=== PATIENT | male | born 1995 | race Two or more races ===

== ENCOUNTER 2018-10-17 17:05 | Emergency (ER) | payer BC, OTHER ==
--- NOTE | 2018-10-17 17:30 | ED ---
Back Pain HPI - General Chief Complaint: Back Pain/Injury Stated Complaint: BACK PAIN Time Seen by Provider: 10/17/18 17:29 Source: patient, RN notes reviewed, old records reviewed Limitations: no limitations - History of Present Illness Initial Comments: This is a 20-year-old male the ER for evaluation chest pain back pain. Patient having persistent pain in his back which began after his tried to crack his back 2 days ago. Patient with occasional shortness of breath but unable to move without difficulty and discomfort. Patient has not tried Motrin, for pain , he occasionally smokes is not been slowly secondary to pursue shortness of breath and not feeling well. He denies any fevers or any other traumatic injury MD Complaint: back pain -: days(s) (2) Similar Symptoms Previously: Yes Place: home Radiation: none Severity: moderate Severity scale (1-10): 4 Quality: aching Consistency: constant Improves With: none - Related Data Home Medications Medication Instructions Recorded Confirmed No Known Home Medications 10/17/18 10/17/18 Allergies Allergy/AdvReac Type Severity Reaction Status Date / Time No Known Allergies Allergy Verified 10/17/18 17:31 Review of Systems ROS Statement: Those systems with pertinent positive or pertinent negative responses have been documented in the HPI. ROS Other: All systems not noted in ROS Statement are negative. Past Medical History Past Medical History: No Reported History Additional Past Medical History / Comment(s): chest pain in the past History of Any Multi-Drug Resistant Organisms: None Reported Past Surgical History: No Surgical Hx Reported Past Psychological History: No Psychological Hx Reported Smoking Status: Current every day smoker Past Alcohol Use History: None Reported Past Drug Use History: Marijuana General Exam Limitations: no limitations General appearance: alert, in no apparent distress Head exam: Present: atraumatic, normocephalic, normal inspection Eye exam: Present: normal appearance, PERRL, EOMI. Absent: scleral icterus, conjunctival injection, periorbital swelling ENT exam: Present: normal exam, mucous membranes moist Neck exam: Present: normal inspection. Absent: tenderness, meningismus, lymphadenopathy Respiratory exam: Present: normal lung sounds bilaterally. Absent: respiratory distress, wheezes, rales, rhonchi, stridor Cardiovascular Exam: Present: regular rate, normal rhythm, normal heart sounds. Absent: systolic murmur, diastolic murmur, rubs, gallop, clicks GI/Abdominal exam: Present: soft, normal bowel sounds. Absent: distended, tenderness, guarding, rebound, rigid Extremities exam: Present: normal inspection, full ROM, normal capillary refill. Absent: tenderness, pedal edema, joint swelling, calf tenderness Back exam: Present: normal inspection Neurological exam: Present: alert, oriented X3, CN II-XII intact Psychiatric exam: Present: normal affect, normal mood Skin exam: Present: warm, dry, intact, normal color. Absent: rash Course Vital Signs 10/17/18 10/17/18 17:13 19:37 Temperature 98.0 F Pulse Rate 56 L 73 Respiratory 18 17 Rate Blood Pressure 121/60 147/109 O2 Sat by Pulse 97 97 Oximetry - Reevaluation(s) Reevaluation #1: 10/17/18 18:41 Medical record is reviewed Reevaluation #2: 10/17/18 18:41 Patient symptomatically improved Medical Decision Making - Medical Decision Making 28 male the ER with acute muscle strain sprain. Pain is upper back, x-rays are negative, symptoms are improved and patient can be discharged home - Radiology Data Radiology results: report reviewed (Chest x-ray and x-ray thoracic spine, lumbar spine is negative for traumatic injury), image reviewed Disposition Clinical Impression: Mechanical back pain, Thoracic back pain Disposition: HOME SELF-CARE Condition: Good Instructions: Acute Low Back Pain (ED) Is patient prescribed a controlled substance at d/c from ED?: No Referrals: None,Stated [Primary Care Provider] - 1-2 days
[2018-10-17] MEDS ORDERED: HYDROcodone/APAP 5-325MG 1 EACH TAB PO STA (17:45)
[2018-10-17] MEDS ORDERED: KETOROLAC 60 MG/2 ML VIAL IM STA (17:45)
[2018-10-17] MEDS ORDERED: DIAZEPAM 5 MG TAB PO STA (17:45)
--- NOTE | 2018-10-17 18:51 | XR ---
EXAMINATION: XR chest 2V DATE AND TIME: 10/17/2018 6:41 PM CLINICAL INDICATION: [facility]; Pain TECHNIQUE: Departmental protocol COMPARISON: 12/12/2014 FINDINGS: The lungs are clear. The pleural spaces are negative. The cardiac silhouette is not enlarged. The remainder of the mediastinal silhouette is unremarkable. The skeletal structures and soft tissues are negative for acute findings. IMPRESSION: NO ACUTE PROCESS.
--- NOTE | 2018-10-17 18:58 | XR ---
PROCEDURE: XR spine complete AP and Lat - 9 total views DATE AND TIME: 10/17/2018 6:41 PM CLINICAL INDICATION: [facility]; Pain TECHNIQUE: 3 views of the cervical spine, 3 views of the thoracic spine, and 3 views of the lumbar sp ine. COMPARISON: 11/10/2012 FINDINGS: Cervical spine: Open-mouth AP odontoid, AP and lateral views obtained. The bones and joints and soft tissues are unremarkable. Thoracic spine: Coned AP and 2 lateral views obtained. There is no fracture or malalignment. No focal skeletal or soft tissue findings. Lumbar spine: Coned AP and 2 lateral views obtained. There is no fracture or malalignment. No focal s keletal or soft tissue findings. IMPRESSION: NO ACUTE PROCESS.
[2018-10-17 20:23] VITALS: BP 138/98; PULSE 72; RESP 19; TEMP 97.9
== END 2018-10-17 20:05 | disposition home or self-care (01) ==
LOC: EC 17:05
DX: M54.6 Pain in thoracic spine (principal); M54.9 Dorsalgia, unspecified; F17.200 Nicotine dependence, unspecified, uncomplicated
CPT/HCPCS: 72082; 71046; 99284; 96372; J1885

== ENCOUNTER 2018-10-21 19:33 | Emergency (ER) | payer BC ==
[2018-10-21] MEDS ORDERED: IPRATROPIUM-ALBUTEROL 3 ML NEB INHALATION STA (20:43)
[2018-10-21] MEDS ORDERED: methylPREDNISolone SOD SUCCI 125 MG/2 ML VIAL IV STA (20:44)
--- NOTE | 2018-10-21 20:58 | ED ---
SOB HPI - General Source: patient, RN notes reviewed, old records reviewed Mode of arrival: ambulatory Limitations: no limitations <Jewell Mejia - Last Filed: 10/24/18 18:57> <Gabrielle Anaya P - Last Filed: 10/27/18 04:03> - General Chief Complaint: Shortness of Breath Stated Complaint: SOB Time Seen by Provider: 10/21/18 20:22 - History of Present Illness Initial Comments: Patient is a 23-year-old male, who presents emergency room today with upper respiratory congestion, complaints of chest pain associated shortness of breath. He is a smoker. He denies any true of asthma. He reports that his daughter has had a cough and congestion as well. Has been treated for RSV. Patient denies any fevers or chills. He denies any past medical history. ( Jewell Mejia) - Related Data Home Medications Medication Instructions Recorded Confirmed methylPREDNISolone Dose Pack See Taper PO DIRECTED 10/24/18 10/24/18 [Medrol Dose Pack] Previous Rx's Medication Instructions Recorded Albuterol Inhaler [Ventolin Hfa 1 - 2 puff INHALATION RT-Q6H PRN 10/21/18 Inhaler] #1 inhaler Azithromycin [Zithromax] 0 mg PO DIRECTED #6 tab 10/25/18 Promethazine/Dextromethorphan 5 ml PO TID #120 ml 10/25/18 [Phenergan DM Syrup] Allergies Allergy/AdvReac Type Severity Reaction Status Date / Time No Known Allergies Allergy Verified 10/24/18 22:57 Review of Systems ROS Other: All systems not noted in ROS Statement are negative. <Jewell Mejia - Last Filed: 10/24/18 18:57> ROS Other: All systems not noted in ROS Statement are negative. <Gabrielle Anaya P - Last Filed: 10/27/18 04:03> ROS Statement: Those systems with pertinent positive or pertinent negative responses have been documented in the HPI. Past Medical History Past Medical History: No Reported History Additional Past Medical History / Comment(s): chest pain in the past History of Any Multi-Drug Resistant Organisms: None Reported Past Surgical History: Hernia Repair Past Psychological History: No Psychological Hx Reported Smoking Status: Current some day smoker Past Alcohol Use History: None Reported Past Drug Use History: Marijuana <Jewell Mejia - Last Filed: 10/24/18 18:57> General Exam Limitations: no limitations <Jewell Mejia - Last Filed: 10/24/18 18:57> <Gabrielle Anaya - Last Filed: 10/27/18 04:03> - General Exam Comments Initial Comments: Well-appearing 23-year-old male. No acute distress. General: Well appearing, well nourished, in no distress. Oriented x 3, normal mood and affect . Ambulating without difficulty. Skin: Good turgor, no rash, unusual bruising or prominent lesions Hair: Normal texture and distribution. HEENT: Head: Normocephalic, atraumatic, no visible or palpable masses, depressions, or scaring. Eyes: Visual acuity intact, conjunctiva clear, sclera non-icteric, EOM intact, PERRL. Ears: EACs clear, TMs translucent & cone of light visualized. hearing intact. Nose: No external lesions, mucosa non-inflamed, septum and turbinates normal Mouth: Mucous membranes moist, no mucosal lesions. Teeth/Gums: No obvious caries or periodontal disease. No gingival inflammation or significant resorption. Pharynx: Mucosa non-inflamed, no tonsillar hypertrophy or exudate Neck: Supple, without lesions, bruits, or adenopathy, thyroid non-enlarged and non-tender Heart: No cardiomegaly or thrills; regular rate and rhythm, no murmur or gallop Lungs: Slight wheezing noted. Tender to palpation over the right posterior rib. Abdomen: Bowel sounds normal, no tenderness, organomegaly, masses, or hernia Back: Spine normal without deformity or tenderness, no CVA tenderness Extremities: No amputations or deformities, cyanosis, edema or varicosities, peripheral pulses intact Musculoskeletal: Normal gait and station. No misalignment, asymmetry, crepitation, defects, tenderness, masses, effusions, decreased range of motion, instability, atrophy or abnormal strength or tone in the head, neck, spine, ribs , pelvis or extremities. Neurologic: CN 2-12 normal. Sensation to pain, touch, and proprioception normal. DTRs normal in upper and lower extremities. No pathologic reflexes. Psychiatric: Oriented X3, intact recent and remote memory, judgment and insight , normal mood and affect. (Jewell Mejia) Vital Signs 1210/21/18 10/21/18 19:37 21:00 21:06 Temperature 97.5 F L Pulse Rate 66 49 L 54 L Respiratory 18 16 Rate Blood Pressure 125/78 111/62 O2 Sat by Pulse 99 99 Oximetry 10/21/18 10/21/18 21:14 22:00 Temperature 97.9 F Pulse Rate 58 L 83 Respiratory 18 Rate Blood Pressure 98/59 O2 Sat by Pulse 97 Oximetry Medical Decision Making - Lab Data Result diagrams: 10/21/18 20:30 10/21/18 20:30 - Radiology Data Radiology results: report reviewed <Jewell Mejia - Last Filed: 10/24/18 18:57> - Lab Data Result diagrams: 10/21/18 20:30 10/21/18 20:30 <Gabrielle Anaya - Last Filed: 10/27/18 04:03> - Medical Decision Making Patient is a 23-year-old male, who presents emergency department today with cough, shortness of breath chest pain with taking deep inspiration. Vital signs are stable. He's had slight wheezing on exam. I do a Patient suffering from viral induced asthma exacerbation. Patient chest x-rays reviewed and negative for any acute process. EKG was reviewed and negative for any changes. Patient also complained of a slight sore throat. Rapid strep is negative. Lab work was reviewed and unremarkable. Discussed this into the Patient for viral bronchitis with ventral Dosepak and inhaler. Patient agrees to treatment plan will comply. Return parameters were discussed. (Jewell Mejia) I was available for consultation in the emergency department. The history and physical exam were done by the Midlevel Provider. Medical decision making was done by the Midlevel Provider. The Midlevel Provider did not contact me for this patient's care. I was not directly involved in this patient's care. (Gabrielle Anaya) - Lab Data Lab Results 10/21/18 10/21/18 10/21/18 Range/Units 20:30 20:30 21:00 WBC 8.2 (3.8-10.6) k/uL RBC 4.74 (4.30-5.90) m/uL Hgb 14.0 (13.0-17.5) gm/dL Hct 41.8 (39.0-53.0) % MCV 88.1 (80.0-100.0) fL MCH 29.6 (25.0-35.0) pg MCHC 33.5 (31.0-37.0) g/dL RDW 12.6 (11.5-15.5) % Plt Count 213 (150-450) k/uL Neutrophils % 44 % Lymphocytes % 39 % Monocytes % 6 % Eosinophils % 8 % Basophils % 1 % Neutrophils # 3.6 (1.3-7.7) k/uL Lymphocytes # 3.2 (1.0-4.8) k/uL Monocytes # 0.5 (0-1.0) k/uL Eosinophils # 0.7 (0-0.7) k/uL Basophils # 0.0 (0-0.2) k/uL Sodium 140 (137-145) mmol/L Potassium 4.2 (3.5-5.1) mmol/L Chloride 107 (98-107) mmol/L Carbon Dioxide 24 (22-30) mmol/L Anion Gap 9 mmol/L BUN 14 (9-20) mg/dL Creatinine 0.81 (0.66-1.25) mg/dL Est GFR (CKD-EPI)AfAm >90 (>60 ml/min/1.73 sqM) Est GFR (CKD-EPI)NonAf >90 (>60 ml/min/1.73 sqM) Glucose 74 (74-99) mg/dL Calcium 9.4 (8.4-10.2) mg/dL Total Bilirubin 0.5 (0.2-1.3) mg/dL AST 23 (17-59) U/L ALT 28 (21-72) U/L Alkaline Phosphatase 39 (38-126) U/L Total Protein 7.0 (6.3-8.2) g/dL Albumin 4.4 (3.5-5.0) g/dL Group A Strep Rapid Negative (Negative) - Radiology Data EKG performed at 2019 shows sinus bradycardia with marked sinus arrhythmia. Otherwise, EKG. Ventricular rate 5 bpm. VT interval 158 ms. Frustration 100 ms. QT QTC 414/396 ms. (Jewell Mejia) Disposition Is patient prescribed a controlled substance at d/c from ED?: No Time of Disposition: 21:49 <Jewell Mejia - Last Filed: 10/24/18 18:57> <Gabrielle Anaya P - Last Filed: 10/27/18 04:03> Clinical Impression: Bronchitis Disposition: HOME SELF-CARE Condition: Good Instructions: Acute Bronchitis (ED) Additional Instructions: Patient is to rest, follow-up with primary care provider. Return to emergency department if any alarming signs or symptoms occur. Prescriptions: Albuterol Inhaler [Ventolin Hfa Inhaler] 1 - 2 puff INHALATION RT-Q6H PRN #1 inhaler PRN Reason: Shortness Of Breath Referrals: None,Stated [Primary Care Provider] - 1-2 days Meri Glynn MD [STAFF PHYSICIAN] - 1-2 days
[2018-10-21 21:02] LABS: Basophils % (A) 1 %; Eosinophils # (A) 0.7 k/uL (0-0.7); Eosinophils % (A) 8 %; HCT 41.8 % (39.0-53.0); Lymphocytes # (A) 3.2 k/uL (1.0-4.8); Lymphocytes % (A) 39 %; MCH 29.6 pg (25.0-35.0); MCHC 33.5 g/dL (31.0-37.0); MCV 88.1 fL (80.0-100.0); Mean Platelet Volume 7.5; Monocytes # (A) 0.5 k/uL (0-1.0); Monocytes % (A) 6 %; Neutrophils # (A) 3.6 k/uL (1.3-7.7); Neutrophils % (A) 44 %; Platelet Count 213 k/uL (150-450); RBC 4.74 m/uL (4.30-5.90); RDW 12.6 % (11.5-15.5); WBC 8.2 k/uL (3.8-10.6)
--- NOTE | 2018-10-21 21:11 | XR ---
EXAMINATION TYPE: XR chest 2V DATE OF EXAM: 10/21/2018 COMPARISON: 10/17/2018 HISTORY: Back pain chest pain TECHNIQUE: Frontal and lateral views of the chest are obtained. FINDINGS: Heart and mediastinum are normal. Lungs are clear. Diaphragm is normal. Bony thorax appear s normal. IMPRESSION: Normal chest. No change.
[2018-10-21 21:14] LABS: ALT 28 U/L (21-72); AST 23 U/L (17-59); Albumin 4.4 g/dL (3.5-5.0); Alkaline Phosphatase 39 U/L (38-126); Anion Gap 9 mmol/L; Blood Urea Nitrogen 14 mg/dL (9-20); Calcium 9.4 mg/dL (8.4-10.2); Carbon Dioxide 24 mmol/L (22-30); Chloride 107 mmol/L (98-107); Glucose 74 mg/dL (74-99); Potassium 4.2 mmol/L (3.5-5.1); Sodium 140 mmol/L (137-145); Total Bilirubin 0.5 mg/dL (0.2-1.3)
[2018-10-21 22:01] VITALS: BP 98/59; PULSE 83; RESP 18; TEMP 97.9
== END 2018-10-21 22:01 | disposition home or self-care (01) ==
LOC: EC 19:33
DX: J40 Bronchitis, not specified as acute or chronic (principal); F17.200 Nicotine dependence, unspecified, uncomplicated; Z79.899 Other long term (current) drug therapy
CPT/HCPCS: 36415; 94640; 93005; 80053; 85025; 87081; 87430; 71046; 99285; 96374; J2930

== ENCOUNTER 2018-10-24 22:22 | Emergency (ER) | payer BC ==
[2018-10-24] MEDS ORDERED: IPRATROPIUM-ALBUTEROL 3 ML NEB INHALATION STA (22:48)
[2018-10-24] MEDS ORDERED: LORazepam 1 MG TAB PO STA (23:44)
--- NOTE | 2018-10-24 23:53 | ED ---
SOB HPI - General Chief Complaint: Shortness of Breath Stated Complaint: bronchitis Time Seen by Provider: 10/24/18 22:39 Source: patient, RN notes reviewed, old records reviewed Mode of arrival: ambulatory Limitations: no limitations - History of Present Illness Initial Comments: Patient is a 23-year-old male, presents today for reevaluation for cough and shortness of breath. Patient was diagnosed with bronchitis earlier in the week. Patient also reports a history of anxiety. He has complained of some chest pain. Patient has no significant past medical history. He does smoke marijuana. He denies any nausea or vomiting. Patient reports he does have a productive cough. Patient has been on steroids for 2 days. - Related Data Home Medications Medication Instructions Recorded Confirmed methylPREDNISolone Dose Pack See Taper PO DIRECTED 10/24/18 10/24/18 [Medrol Dose Pack] Previous Rx's Medication Instructions Recorded Albuterol Inhaler [Ventolin Hfa 1 - 2 puff INHALATION RT-Q6H PRN 10/21/18 Inhaler] #1 inhaler Azithromycin [Zithromax] 0 mg PO DIRECTED #6 tab 10/25/18 Promethazine/Dextromethorphan 5 ml PO TID #120 ml 10/25/18 [Phenergan DM Syrup] Allergies Allergy/AdvReac Type Severity Reaction Status Date / Time No Known Allergies Allergy Verified 10/24/18 22:57 Review of Systems ROS Statement: Those systems with pertinent positive or pertinent negative responses have been documented in the HPI. ROS Other: All systems not noted in ROS Statement are negative. Past Medical History Past Medical History: No Reported History Additional Past Medical History / Comment(s): chest pain in the past History of Any Multi-Drug Resistant Organisms: None Reported Past Surgical History: Hernia Repair Past Psychological History: No Psychological Hx Reported Smoking Status: Former smoker Past Alcohol Use History: None Reported Past Drug Use History: Marijuana General Exam - General Exam Comments Initial Comments: Patient is a 23-year-old male. Alert and oriented. Patient appears in no significant distress. Limitations: no limitations General appearance: alert, in no apparent distress Head exam: Present: atraumatic, normocephalic, normal inspection Eye exam: Present: normal appearance, PERRL, EOMI. Absent: scleral icterus, conjunctival injection, periorbital swelling ENT exam: Present: normal exam, mucous membranes moist Neck exam: Present: normal inspection. Absent: tenderness, meningismus, lymphadenopathy Respiratory exam: Present: normal lung sounds bilaterally. Absent: respiratory distress, wheezes, rales, rhonchi, stridor Cardiovascular Exam: Present: regular rate, normal rhythm, normal heart sounds. Absent: systolic murmur, diastolic murmur, rubs, gallop, clicks GI/Abdominal exam: Present: soft, normal bowel sounds. Absent: distended, tenderness, guarding, rebound, rigid Extremities exam: Present: normal inspection, full ROM, normal capillary refill. Absent: tenderness, pedal edema, joint swelling, calf tenderness Back exam: Present: normal inspection Neurological exam: Present: alert, oriented X3, CN II-XII intact Psychiatric exam: Present: normal affect, normal mood Skin exam: Present: warm, dry, intact, normal color. Absent: rash Course Vital Signs 10/24/18 10/24/18 10/24/18 22:31 22:54 23:03 Temperature 97.7 F Pulse Rate 52 L 52 L 63 Respiratory 20 Rate Blood Pressure 132/69 O2 Sat by Pulse 99 Oximetry Disposition Clinical Impression: Bronchitis, Anxiety Disposition: HOME SELF-CARE Condition: Good Instructions: Acute Bronchitis (ED) Additional Instructions: Advised to rest, continue the inhaler and steroids. Follow-up with primary care physician. Return to emergency department if any alarming signs or symptoms occur. Prescriptions: Azithromycin [Zithromax] 0 mg PO DIRECTED #6 tab Promethazine/Dextromethorphan [Phenergan DM Syrup] 5 ml PO TID #120 ml Is patient prescribed a controlled substance at d/c from ED?: No Referrals: None,Stated [Primary Care Provider] - 1-2 days Meri Glynn MD [STAFF PHYSICIAN] - 1-2 days Time of Disposition: 00:39
--- NOTE | 2018-10-25 00:26 | XR ---
EXAMINATION TYPE: XR chest 2V DATE OF EXAM: 10/24/2018 COMPARISON: 10/21/2018 HISTORY: Chest pain difficulty breathing TECHNIQUE: Frontal and lateral views of the chest are obtained. FINDINGS: Heart and mediastinum are normal. Lungs are clear. Diaphragm is normal. Bony thorax appear s normal. IMPRESSION: Normal chest. No change.
[2018-10-25 01:17] VITALS: BP 120/68; PULSE 57; RESP 19; TEMP 98.3
== END 2018-10-25 01:06 | disposition home or self-care (01) ==
LOC: EC 22:22
DX: J40 Bronchitis, not specified as acute or chronic (principal); F41.9 Anxiety disorder, unspecified; Z87.891 Personal history of nicotine dependence; Z79.52 Long term (current) use of systemic steroids
CPT/HCPCS: 71046; 93005; 94640; 99285

== ENCOUNTER 2018-11-07 02:35 | Emergency (ER) | payer BC ==
[2018-11-07 03:09] VITALS: BP 118/60; TEMP 98.9
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
[2018-11-07 04:13] VITALS: PULSE 94; RESP 16
== END 2018-11-07 04:15 | disposition home or self-care (01) ==
LOC: EC 02:35 → SUPCPDRO 02:35 → EC 04:15
DX: S71.012A Laceration without foreign body, left hip, initial encounter (principal); Z87.891 Personal history of nicotine dependence; Z79.899 Other long term (current) drug therapy; Y04.0XXA Assault by unarmed brawl or fight, initial encounter; Y93.02 Activity, running
CPT/HCPCS: 12001; 99282

== ENCOUNTER 2019-01-11 15:44 | Emergency (ER) | payer BC ==
[2019-01-11 15:56] VITALS: BP 129/66; PULSE 62; RESP 18; TEMP 98.5
[2019-01-11] MEDS ORDERED: KETOROLAC 60 MG/2 ML VIAL IM STA (16:43)
[2019-01-11] MEDS ORDERED: DEXAMETHASONE SOD PHOSPHATE 10 MG/ML 1 ML VIAL IM STA (16:44)
--- NOTE | 2019-01-11 16:48 | ED ---
General Adult HPI - General Chief complaint: Recheck/Abnormal Lab/Rx Stated complaint: can't swallow, had teeth pulled today Time Seen by Provider: 01/11/19 16:09 Source: patient Mode of arrival: ambulatory Limitations: no limitations - History of Present Illness Initial comments: Patient is a 23-year-old male presents with chief complaint of difficulty swallowing after having his wisdom teeth removed today at 11:30 AM. The patient states that he is not choking on his secretions, he is able to tolerate by mouth fluids, he is just concerned about the pain. He was prescribed Hinckley, and Augmentin from his dentist office. Patient denies any fevers, chills, difficulty breathing. No nausea or vomiting. - Related Data Home Medications Medication Instructions Recorded Confirmed Amoxicillin 500 mg PO Q8H 01/11/19 01/11/19 HYDROcodone/APAP 5-325MG [Hinckley 1 tab PO Q6HR PRN 01/11/19 01/11/19 5-325] diphenhydrAMINE HCL [Benadryl] 25 mg PO Q6H PRN 01/11/19 01/11/19 Previous Rx's Medication Instructions Recorded Ibuprofen [Motrin] 800 mg PO Q8H #20 tab 01/11/19 Allergies Allergy/AdvReac Type Severity Reaction Status Date / Time No Known Allergies Allergy Verified 01/11/19 16:33 Review of Systems ROS Statement: Those systems with pertinent positive or pertinent negative responses have been documented in the HPI. ROS Other: All systems not noted in ROS Statement are negative. ENT: Reports: throat pain, dental pain Past Medical History Past Medical History: No Reported History Additional Past Medical History / Comment(s): chest pain in the past History of Any Multi-Drug Resistant Organisms: None Reported Past Surgical History: Hernia Repair Additional Past Surgical History / Comment(s): oral surgery Past Psychological History: No Psychological Hx Reported Smoking Status: Former smoker Past Alcohol Use History: None Reported Past Drug Use History: Marijuana General Exam Limitations: no limitations General appearance: alert, in no apparent distress Head exam: Present: atraumatic, normocephalic Eye exam: Present: normal appearance ENT exam: Present: normal exam, normal oropharynx, mucous membranes moist, other (Patient has swelling along the posterior molars secondary to having his wisdom teeth removed today. There is no edema of the airway. No stridor appreciated on exam.) Neck exam: Present: normal inspection Respiratory exam: Present: normal lung sounds bilaterally. Absent: respiratory distress, wheezes Cardiovascular Exam: Present: regular rate, normal rhythm GI/Abdominal exam: Present: soft. Absent: distended, tenderness Rectal exam: Present: deferred Extremities exam: Present: normal inspection Back exam: Present: normal inspection Neurological exam: Present: alert, oriented X3 Psychiatric exam: Present: normal affect, normal mood Skin exam: Present: warm, dry, intact Course Vital Signs 01/11/19 15:54 Temperature 98.5 F Pulse Rate 62 Respiratory 18 Rate Blood Pressure 129/66 O2 Sat by Pulse 99 Oximetry Medical Decision Making - Medical Decision Making Patient presents with a chief complaint of sore throat and difficulty swallowing after wisdom teeth removed at 11:30. Initial evaluation shows a patient who is in no acute distress stable vital signs. He does not appear to be having any difficulty breathing, exam is very reassuring as there is no stridor or abnormal lung sounds. Evaluation of the mouth and throat shows localized swelling as is expected after surgery. No edema of the airway. Patient given a dose of Decadron, and a shot of Toradol in the emergency department. He was instructed to continue taking his antibiotic and pain medication as directed. He'll be written a prescription for Motrin for added anti-inflammatory relief. At this time, no further intervention required. Patient was instructed to follow up with primary care and his dentist and was 2 days, return to the ED if new or worsening symptoms arise. I had a long discussion with the patient and his significant other regarding concerning signs that should prompt immediate return. Patient discharged in stable condition. Disposition Clinical Impression: Sore throat Disposition: HOME SELF-CARE Condition: Good Prescriptions: Ibuprofen [Motrin] 800 mg PO Q8H #20 tab Is patient prescribed a controlled substance at d/c from ED?: No Referrals: Geronimo Aguirre MD [Primary Care Provider] - 1-2 days
== END 2019-01-11 17:28 | disposition home or self-care (01) ==
LOC: EC 15:44
DX: J02.9 Acute pharyngitis, unspecified (principal); R13.10 Dysphagia, unspecified; Z87.891 Personal history of nicotine dependence
CPT/HCPCS: 99283; 96372 ×2; J1100; J1885

== ENCOUNTER 2019-02-25 02:39 | Emergency (ER) | payer BC ==
[2019-02-25] MEDS ORDERED: AMOXIC-POT CLAV 875MG STARTER 2 EACH TABLET PO STA (04:14)
[2019-02-25] MEDS ORDERED: MECLIZINE 12.5 MG TAB PO STA (04:14)
[2019-02-25] MEDS ORDERED: predniSONE 50 MG TAB PO STA (04:14)
--- NOTE | 2019-02-25 04:17 | ED ---
General Adult HPI - General Source: patient Mode of arrival: ambulatory Limitations: no limitations <Anne-Marie Timmons - Last Filed: 02/25/19 04:57> <Gabrielle Anaya - Last Filed: 02/26/19 01:52> - General Chief complaint: Dizziness Stated complaint: Light-Headed Time Seen by Provider: 02/25/19 04:01 - History of Present Illness Initial comments: 23-year-old male patient presents to the emergency department today for evaluation of right-sided nasal congestion, right ear pressure and fullness, and lightheadedness. Patient states symptoms were gone on for the last month and a half. Patient states he was treated at that time for sinusitis however symptoms are not improved. Patient states that tonight he woke from sleep after having an episode where he felt like he was gasping for air. Patient states the feeling lasted for several minutes so he became nervous and presented here for further evaluation. Patient denies any fevers or chills. Denies any sore throat, cough, or wheezing. Patient denies any numbness, tingling, or weakness to his extremities. Denies any chest pain. Denies any current shortness of breath. Denies any headache, blurred vision, double vision. Patient does admit to marijuana use. Denies any alcohol use. (Anne-Marie Timmons) - Related Data Previous Rx's Medication Instructions Recorded Amoxic-Pot Clav 875-125Mg 1 tab PO Q12HR #20 tablet 02/25/19 [Augmentin 875-125] Meclizine HCl 25 mg PO BID PRN #14 tablet 02/25/19 predniSONE 50 mg PO DAILY #5 tablet 02/25/19 Allergies Allergy/AdvReac Type Severity Reaction Status Date / Time No Known Allergies Allergy Verified 01/11/19 16:33 Review of Systems ROS Other: All systems not noted in ROS Statement are negative. <Anne-Marie Timmons - Last Filed: 02/25/19 04:57> ROS Other: All systems not noted in ROS Statement are negative. <Gabrielle Anaya - Last Filed: 02/26/19 01:52> ROS Statement: Those systems with pertinent positive or pertinent negative responses have been documented in the HPI. Past Medical History Past Medical History: No Reported History Additional Past Medical History / Comment(s): chest pain in the past History of Any Multi-Drug Resistant Organisms: None Reported Past Surgical History: Hernia Repair Additional Past Surgical History / Comment(s): oral surgery Past Psychological History: No Psychological Hx Reported Smoking Status: Former smoker Past Alcohol Use History: None Reported Past Drug Use History: Marijuana <IainKarthikAnne-Marie M - Last Filed: 02/25/19 04:57> General Exam Limitations: no limitations General appearance: alert, in no apparent distress, other (Physical well- developed, well-nourished adult male patient in no acute distress. Vital signs upon presentation are temperature 97.6F, pulse 63, respirations 20, blood pressure 126/66, pulse ox 98% on room air.) Eye exam: Present: normal appearance, PERRL, EOMI. Absent: scleral icterus, conjunctival injection, periorbital swelling ENT exam: Present: normal exam, normal oropharynx, mucous membranes moist. Absent: TM's normal bilaterally (This effusion noted to the right ear, ear fullness present. No erythema.) Respiratory exam: Present: normal lung sounds bilaterally. Absent: respiratory distress, wheezes, rales, rhonchi, stridor Cardiovascular Exam: Present: regular rate, normal rhythm, normal heart sounds. Absent: systolic murmur, diastolic murmur, rubs, gallop, clicks Neurological exam: Present: alert, oriented X3, CN II-XII intact, other (Strength in approximately his is 5/5.) Psychiatric exam: Present: normal affect, normal mood Skin exam: Present: warm, dry, intact, normal color. Absent: rash <Anne-Marie Timmons M - Last Filed: 02/25/19 04:57> Course Vital Signs 02/25/19 02/25/19 02/25/19 03:04 04:25 05:05 Temperature 97.6 F 97.6 F 97.8 F Pulse Rate 63 54 L 76 Respiratory 20 16 18 Rate Blood Pressure 126/66 122/68 139/72 O2 Sat by Pulse 98 100 99 Oximetry EKG Findings - EKG Comments: EKG Findings:: EKG obtained at 04 31 shows sinus bradycardia with marked sinus arrhythmia. Incomplete right bundle branch block. Ventricular rate is 53, UT interval 160, QRS duration 102, QT 410, QTC 384. No evidence of ST elevation or depression. Did review EKG obtained in October 2018, no changes from that EKG. <Anne-Marie Timmons - Last Filed: 02/25/19 04:57> Medical Decision Making <Anne-Marie Timmons - Last Filed: 02/25/19 04:57> <Gabrielle Anaya - Last Filed: 02/26/19 01:52> - Medical Decision Making 23-year-old male patient presents the emergency department today for evaluation of dizziness, right ear pressure and fullness, and nasal congestion. Physical examination is unremarkable. He is neurologically intact with no deficits. Right ear effusion was present. We'll treat for sinusitis with antibiotics, steroids, and meclizine for dizziness. He is instructed to follow-up with the ears, nose, throat specialist for further evaluation. He'll be discharged follo w-up with his primary care physician for recheck in 1-2 days. Return parameters discussed in detail. He verbalizes understanding and agrees with this plan. (Anne-Marie Timmons) I was available for consultation in the emergency department. The history and physical exam were done by the Midlevel Provider. Medical decision making was done by the Midlevel Provider. The Midlevel Provider did not contact me for this patient's care. I was not directly involved in this patient's care. (Gabrielle Anaya) Disposition Is patient prescribed a controlled substance at d/c from ED?: No Time of Disposition: 04:17 <Anne-Marie Timmons - Last Filed: 02/25/19 04:57> <Gabrielle Anaya - Last Filed: 02/26/19 01:52> Clinical Impression: Sinusitis, Lightheadedness Disposition: HOME SELF-CARE Condition: Good Instructions (If sedation given, give patient instructions): Sinusitis (ED), Dizziness (ED) Additional Instructions: Take medications as directed. Follow-up with the ears, nose, throat specialist for recheck as soon as possible. Discuss possibility of sleep apnea with your primary care physician, discuss sleep study. Return to the emergency department immediately for any new, worsening, or concerning symptoms. Prescriptions: Amoxic-Pot Clav 875-125Mg [Augmentin 875-125] 1 tab PO Q12HR #20 tablet Meclizine HCl 25 mg PO BID PRN #14 tablet PRN Reason: Dizziness predniSONE 50 mg PO DAILY #5 tablet Referrals: [place],Geronimo J, MD [Primary Care Provider] - 1-2 days Kwaku Holcomb MD [STAFF PHYSICIAN] - 1-2 days
[2019-02-25 05:06] VITALS: BP 139/72; PULSE 76; RESP 18; TEMP 97.8
== END 2019-02-25 05:06 | disposition home or self-care (01) ==
LOC: SUPCPDRO 02:39 → EC 02:39
DX: J32.9 Chronic sinusitis, unspecified (principal); R42 Dizziness and giddiness; H93.8X1 Other specified disorders of right ear; Z87.891 Personal history of nicotine dependence
CPT/HCPCS: 93005; 99284; J7512

== ENCOUNTER 2019-05-27 23:32 | Emergency (ER) | payer BC, OTHER ==
[2019-05-27 23:39] VITALS: BP 137/70; PULSE 93; RESP 17; TEMP 98.4
[2019-05-28 00:24] LABS: Basophils % (A) 1 %; Eosinophils # (A) 0.5 k/uL (0-0.7); Eosinophils % (A) 6 %; HCT 39.8 % (39.0-53.0); HGB 13.3 gm/dL (13.0-17.5); Lymphocytes # (A) 3.4 k/uL (1.0-4.8); Lymphocytes % (A) 42 %; MCH 29.1 pg (25.0-35.0); MCHC 33.5 g/dL (31.0-37.0); Mean Platelet Volume 6.9; Monocytes # (A) 0.5 k/uL (0-1.0); Monocytes % (A) 6 %; Neutrophils # (A) 3.6 k/uL (1.3-7.7); Neutrophils % (A) 44 %; Platelet Count 274 k/uL (150-450); RBC 4.57 m/uL (4.30-5.90); RDW 12.8 % (11.5-15.5); WBC 8.1 k/uL (3.8-10.6)
[2019-05-28 00:35] LABS: ALT 19 U/L (21-72); AST 19 U/L (17-59); African American GFR (CKD) >90 (>60 ml/min/1.73 sqM); Albumin 4.6 g/dL (3.5-5.0); Alkaline Phosphatase 46 U/L (38-126); Anion Gap 12 mmol/L; Blood Urea Nitrogen 11 mg/dL (9-20); Calcium 9.6 mg/dL (8.4-10.2); Carbon Dioxide 25 mmol/L (22-30); Chloride 105 mmol/L (98-107); Glucose 113 mg/dL (74-99); Potassium 3.5 mmol/L (3.5-5.1); Sodium 142 mmol/L (137-145); Total Bilirubin 0.3 mg/dL (0.2-1.3)
[2019-05-28 00:41] LABS: Partial Thromboplastin Time 25.4 sec (22.0-30.0); Prothrombin Time 10.6 sec (9.0-12.0)
--- NOTE | 2019-05-28 00:42 | XR ---
EXAM: XR Chest, 2 Views CLINICAL HISTORY: Chest Pain TECHNIQUE: Frontal and lateral views of the chest. COMPARISON: 10/24/18 FINDINGS: Lungs: Unremarkable. No consolidation. Pleural space: Unremarkable. No pneumothorax. Heart: Unremarkable. No cardiomegaly. Mediastinum: Unremarkable. Bones/joints: Unremarkable. IMPRESSION: Normal chest x-rays.
--- NOTE | 2019-05-28 01:03 | ED ---
Chest Pain HPI - General Chief Complaint: Chest Pain Stated Complaint: Chest pain,fingers toes numb Time Seen by Provider: 05/28/19 01:03 Source: family Mode of arrival: ambulatory Limitations: no limitations - History of Present Illness Initial Comments: Petey is a 24-year-old gentleman with no significant past medical history who presents the emergency department today for evaluation of 3 days of tight feeling in his chest, nonproductive cough and occasional episodes of tingling in his hands and feet. Patient reports that in the past he has been given an inhaler but he doesn't believe he has asthma. He states that for the past 3 days he has been feeling like his chest is tight, he has been coughing but his cough is nonproductive. He states sometimes he feels short of breath and feels like his hands and feet go numb or tingly. He has not experienced this in the past. Patient also notes that he can only breathe out of one nostril this is chronic for him he has never seen a doctor for this. She does admit to regular marijuana smoking. - Related Data Previous Rx's Medication Instructions Recorded Amoxic-Pot Clav 875-125Mg 1 tab PO Q12HR #20 tablet 02/25/19 [Augmentin 875-125] Meclizine HCl 25 mg PO BID PRN #14 tablet 02/25/19 predniSONE 50 mg PO DAILY #5 tablet 02/25/19 Albuterol Inhaler [Ventolin Hfa 1 - 2 puff INHALATION RT-Q6H PRN 05/28/19 Inhaler] #1 inhaler Allergies Allergy/AdvReac Type Severity Reaction Status Date / Time No Known Allergies Allergy Verified 01/11/19 16:33 Review of Systems ROS Statement: Those systems with pertinent positive or pertinent negative responses have been documented in the HPI. ROS Other: All systems not noted in ROS Statement are negative. EKG Findings - EKG Comments: EKG Findings:: EKG was obtained due to complaint of chest pain, EKG obtained at 2347, rate is 76 rhythm is sinus there is normal axis, normal intervals, NV 156, QRS 4, QTC 429 there is no acute ST elevations or depressions no evidence of acute ischemia or infarction. Past Medical History Past Medical History: No Reported History Additional Past Medical History / Comment(s): chest pain in the past History of Any Multi-Drug Resistant Organisms: None Reported Past Surgical History: Hernia Repair Additional Past Surgical History / Comment(s): oral surgery Past Psychological History: No Psychological Hx Reported Smoking Status: Former smoker Past Alcohol Use History: Occasional Past Drug Use History: Marijuana General Exam - General Exam Comments Initial Comments: Physical Exam GENERAL: Patient is well-developed and well-nourished. Patient is nontoxic and well-hydrated and is in no distress. HENT: Normocephalic, Atraumatic. EYES: PERRL, EOMI PULMONARY: Unlabored respirations. No audible rales rhonchi or wheezing was noted. CARDIOVASCULAR: There is a regular rate and rhythm without any murmurs gallops or rubs. ABDOMEN: Soft and nontender with normal bowel sounds. SKIN: Skin is clear with no lesions or rashes and otherwise unremarkable. : Deferred NEUROLOGIC: Patient is alert and oriented x3. Moving all extremities spontaneously MUSCULOSKELETAL: Normal extremities with adequate strength and full range of motion. No lower extremity swelling or edema. No calf tenderness. PSYCHIATRIC: Normal psychiatric evaluation Limitations: no limitations Course Vital Signs 05/27/19 23:35 Temperature 98.4 F Pulse Rate 93 Respiratory 17 Rate Blood Pressure 137/70 O2 Sat by Pulse 98 Oximetry Chest Pain MDM - MDM The patient was seen and evaluated, history was obtained from the patient excited history and physical exam were unremarkable Cardiac workup was performed in triage, labs were unremarkable, EKG was reviewed is nonischemic, chest x-ray no acute findings These results were discussed with the patient was asymptomatic at the time of evaluation. I suspect the patient may be having some bronchospasm related to his smoking. We'll prescribe albuterol inhaler. Patient comfortable with this plan. All questions pertaining care were answered return parameters were discussed the patient was discharged home in stable condition. Disposition Clinical Impression: Atypical chest pain Disposition: HOME SELF-CARE Condition: Stable Instructions (If sedation given, give patient instructions): Chest Pain (ED) Prescriptions: Albuterol Inhaler [Ventolin Hfa Inhaler] 1 - 2 puff INHALATION RT-Q6H PRN #1 inhaler PRN Reason: Wheezing Is patient prescribed a controlled substance at d/c from ED?: No Referrals: None,Stated [Primary Care Provider] - 1-2 days [facility] [[facility] - 1-2 days Lisa Garcia MD [REFERRING] - 1-2 days Myke Mason DO [Doctor of Osteopathic Medicine] - 1-2 days Hermes Palacios MD [STAFF PHYSICIAN] - 1-2 days
== END 2019-05-28 01:21 | disposition home or self-care (01) ==
LOC: EC 23:32
DX: R07.89 Other chest pain (principal); R05 Cough; R20.2 Paresthesia of skin; R20.0 Anesthesia of skin; Z87.891 Personal history of nicotine dependence
CPT/HCPCS: 36415; 71046; 80053; 83735; 84484; 85025; 85610; 85730; 93005; 99285

== ENCOUNTER 2019-05-30 00:31 | Emergency (ER) | payer OTHER ==
[2019-05-30 00:39] VITALS: RESP 18; TEMP 97.6
[2019-05-30 01:45] VITALS: BP 113/57; PULSE 52
--- NOTE | 2019-05-30 01:57 | XR ---
EXAM: XR Chest, 2 Views CLINICAL HISTORY: ITS.REASON XR Reason: Pain TECHNIQUE: Frontal and lateral views of the chest. COMPARISON: Chest radiograph 05/28/2019. Chest radiograph 10/24/2018. FINDINGS: Lungs: No focal pulmonary infiltrates or consolidations. Pleural space: No evidence of pleural effusion or pneumothorax. Heart: Heart size is within normal limits. Mediastinum: Mediastinal structures are unremarkable. Bones/joints: Imaged bony thorax is unremarkable. IMPRESSION: No evidence of acute cardiopulmonary disease.
--- NOTE | 2019-05-30 02:05 | ED ---
General Adult HPI - General Chief complaint: Shortness of Breath Stated complaint: SOB Time Seen by Provider: 05/30/19 00:44 Source: patient, RN notes reviewed Mode of arrival: ambulatory Limitations: no limitations - History of Present Illness Initial comments: 24-year-old male presents to the emergency department for a chief complaint of chest pain. States this started today when he woke up but was also seen here 2 days ago for chest pain. States it is in the right lower chest and also in bilateral sides and armpits. He states he feels somewhat short of breath as well. Denies any back pain. Denies any chest pressure. Denies any diaphoresis. Denies symptoms worsening on exertion. States symptoms worsen with movement.Patient has no other complaints at this time including , abdominal pain, nausea or vomiting, headache, or visual changes. - Related Data Previous Rx's Medication Instructions Recorded Amoxic-Pot Clav 875-125Mg 1 tab PO Q12HR #20 tablet 02/25/19 [Augmentin 875-125] Meclizine HCl 25 mg PO BID PRN #14 tablet 02/25/19 predniSONE 50 mg PO DAILY #5 tablet 02/25/19 Albuterol Inhaler [Ventolin Hfa 1 - 2 puff INHALATION RT-Q6H PRN 05/28/19 Inhaler] #1 inhaler Allergies Allergy/AdvReac Type Severity Reaction Status Date / Time No Known Allergies Allergy Verified 01/11/19 16:33 Review of Systems ROS Statement: Those systems with pertinent positive or pertinent negative responses have been documented in the HPI. ROS Other: All systems not noted in ROS Statement are negative. Past Medical History Past Medical History: No Reported History Additional Past Medical History / Comment(s): chest pain in the past History of Any Multi-Drug Resistant Organisms: None Reported Past Surgical History: Hernia Repair Additional Past Surgical History / Comment(s): oral surgery Past Psychological History: No Psychological Hx Reported Smoking Status: Former smoker Past Alcohol Use History: Occasional Past Drug Use History: Marijuana General Exam Limitations: no limitations General appearance: alert, in no apparent distress Head exam: Present: atraumatic, normocephalic, normal inspection Eye exam: Present: normal appearance, PERRL, EOMI. Absent: scleral icterus, conjunctival injection, periorbital swelling ENT exam: Present: normal exam, mucous membranes moist Neck exam: Present: normal inspection, full ROM. Absent: tenderness, meningismus, lymphadenopathy Respiratory exam: Present: normal lung sounds bilaterally, chest wall tenderness (Patient does have right anterior chest wall tenderness, reproducible to palpation). Absent: respiratory distress, wheezes, rales, rhonchi, stridor Cardiovascular Exam: Present: regular rate, normal rhythm, normal heart sounds. Absent: systolic murmur, diastolic murmur, rubs, gallop, clicks GI/Abdominal exam: Present: soft, normal bowel sounds. Absent: distended, tenderness (No tenderness noted to the abdomen or epigastric area), guarding, rebound, rigid Neurological exam: Present: alert, oriented X3, CN II-XII intact Psychiatric exam: Present: normal affect, normal mood Course Vital Signs 05/30/19 05/30/19 00:34 01:44 Temperature 97.6 F Pulse Rate 82 52 L Respiratory 18 18 Rate Blood Pressure 127/67 113/57 O2 Sat by Pulse 98 96 Oximetry EKG Findings - EKG Comments: EKG Findings:: Sinus bradycardia, ventricular rate 54, CO interval 154, QTc 396 Medical Decision Making - Medical Decision Making 24-year-old male presents to the emergency department for right lower chest pain times one day. However patient was seen 2 days ago for similar complaints. No past medical history. Patient denies any diaphoresis. Admits to mild shortness of breath. States he is to be a smoker. Vitals are stable. On exam patient does have reproducible right anterior lower chest pain. EKG shows a sinus bradycardia. Chest x-ray shows no evidence for acute cardiopulmonary process. Patient given Motrin, states he is having much better. Patient does appear to be high at this time and was sleeping and reevaluation. Given reproducibility of pain this is likely secondary to a chest wall pain. Recommended anti- inflammatories and following up with primary care in 1-2 days. Disposition Clinical Impression: Chest wall pain Disposition: HOME SELF-CARE Condition: Good Instructions (If sedation given, give patient instructions): Chest Pain (ED) Additional Instructions: Please take motrin and Advil for pain. Please follow-up with primary care in 1- 2 days. Please return here to the emergency department if you have any worsening symptoms. Is patient prescribed a controlled substance at d/c from ED?: No Referrals: Geronimo Aguirre MD [Primary Care Provider] - 1-2 days Time of Disposition: 02:04
== END 2019-05-30 02:12 | disposition home or self-care (01) ==
LOC: EC 00:31
DX: R07.89 Other chest pain (principal); R06.02 Shortness of breath; R00.1 Bradycardia, unspecified; Z87.891 Personal history of nicotine dependence
CPT/HCPCS: 71046; 93005; 99285

== ENCOUNTER 2019-08-27 21:47 | Emergency (ER) | payer OTHER ==
[2019-08-27 21:54] VITALS: BP 138/78; PULSE 95; RESP 18; TEMP 98.6
--- NOTE | 2019-08-28 00:05 | ED ---
Skin/Abscess/FB HPI <Jax Torres - Last Filed: 08/28/19 00:10> - General Source: patient Mode of arrival: ambulatory Limitations: no limitations <Lizbeth Dash - Last Filed: 08/28/19 00:19> - General Chief complaint: Skin/Abscess/Foreign Body Stated complaint: bumps on finger Time Seen by Provider: 08/27/19 23:50 - Related Data Previous Rx's Medication Instructions Recorded Amoxic-Pot Clav 875-125Mg 1 tab PO Q12HR #20 tablet 02/25/19 [Augmentin 875-125] Meclizine HCl 25 mg PO BID PRN #14 tablet 02/25/19 predniSONE 50 mg PO DAILY #5 tablet 02/25/19 Albuterol Inhaler [Ventolin Hfa 1 - 2 puff INHALATION RT-Q6H PRN 05/28/19 Inhaler] #1 inhaler Triamcinolone 0.1% Cream [Kenalog 1 applicatio TOPICAL BID 7 Days #1 08/28/19 0.1% Cream] tube predniSONE 20 mg PO BID 4 Days #8 tab 08/28/19 Allergies Allergy/AdvReac Type Severity Reaction Status Date / Time No Known Allergies Allergy Verified 08/27/19 21:53 Review of Systems ROS Other: All systems not noted in ROS Statement are negative. <Jax Torres - Last Filed: 08/28/19 00:10> ROS Other: All systems not noted in ROS Statement are negative. <Lizbeth Dash - Last Filed: 08/28/19 00:19> ROS Statement: Those systems with pertinent positive or pertinent negative responses have been documented in the HPI. Past Medical History Past Medical History: No Reported History Additional Past Medical History / Comment(s): chest pain in the past History of Any Multi-Drug Resistant Organisms: None Reported Past Surgical History: Hernia Repair Additional Past Surgical History / Comment(s): oral surgery Past Psychological History: No Psychological Hx Reported Smoking Status: Former smoker Past Alcohol Use History: Occasional Past Drug Use History: Marijuana <Lizbeth Dash - Last Filed: 08/28/19 00:19> General Exam Limitations: no limitations <Lizbeth Dash - Last Filed: 08/28/19 00:19> Course Vital Signs 10/21/19 21:50 Temperature 98.6 F Pulse Rate 95 Respiratory 18 Rate Blood Pressure 138/78 O2 Sat by Pulse 99 Oximetry Medical Decision Making <Jax Torres - Last Filed: 08/28/19 00:10> - Medical Decision Making The patient was seen and examined. The case is discussed with the PA and I agree with the findings as documented. (Jax Torres) Disposition <Jax Torres - Last Filed: 08/28/19 00:10> Is patient prescribed a controlled substance at d/c from ED?: No Time of Disposition: 00:19 <HailorraineLizbeth L - Last Filed: 08/28/19 00:19> Clinical Impression: Contact dermatitis Disposition: HOME SELF-CARE Condition: Good Instructions (If sedation given, give patient instructions): Contact Dermatitis (ED) Additional Instructions: Please use medication as discussed. Please follow-up with family doctor in the next 2 days of symptoms have not improved. Please return to emergency room if the symptoms increase or worsen or for any other concerns. Prescriptions: Triamcinolone 0.1% Cream [Kenalog 0.1% Cream] 1 applicatio TOPICAL BID 7 Days #1 tube predniSONE 20 mg PO BID 4 Days #8 tab Referrals: Geronimo Aguirre MD [Primary Care Provider] - 1-2 days
== END 2019-08-28 00:31 | disposition home or self-care (01) ==
LOC: EC 21:47
DX: L25.9 Unspecified contact dermatitis, unspecified cause (principal); Z87.891 Personal history of nicotine dependence
CPT/HCPCS: 99283

== ENCOUNTER 2019-10-22 16:25 | Emergency (ER) | payer OTHER ==
[2019-10-22 16:32] VITALS: RESP 18; TEMP 97.7
[2019-10-22] MEDS ORDERED: KETOROLAC 30 MG/ML 1 ML VIAL IVP STA (16:50)
[2019-10-22] MEDS ORDERED: KETOROLAC 60 MG/2 ML VIAL IM STA (17:00)
--- NOTE | 2019-10-22 17:08 | ED ---
Chest Pain HPI - General Chief Complaint: Chest Pain Stated Complaint: chest pain Time Seen by Provider: 10/22/19 16:39 Source: patient Mode of arrival: ambulatory Limitations: no limitations - History of Present Illness Initial Comments: patient is a 24-year-old male presenting to emergency Department with complaints of intermittent chest pain as well as nasal congestion and cough. Patient states he's had a cough for the last 4 days as well as nasal congestion. Patient states today he was sitting watching TV when he had brief episodes of sharp chest pain lasted approximately one second each on the left side of his chest. Patient denies chest pain at this time. Patient does admit to some mild left hand numbness that just started today. he denies any previous injury to his left arm or shoulder. Patient states he has been sleeping a lot on his left side. Patient denies shortness of breath, fever, chills, nausea, vomiting, diarrhea. He states his child and other family members have had a cough as well. Patient has no other complaints at this time. patient denies history of heart disease. No recent travel. Upon arrival to the ER, vital signs are stable. - Related Data Previous Rx's Medication Instructions Recorded Amoxic-Pot Clav 875-125Mg 1 tab PO Q12HR #20 tablet 02/25/19 [Augmentin 875-125] Meclizine HCl 25 mg PO BID PRN #14 tablet 02/25/19 predniSONE 50 mg PO DAILY #5 tablet 02/25/19 Albuterol Inhaler [Ventolin Hfa 1 - 2 puff INHALATION RT-Q6H PRN 05/28/19 Inhaler] #1 inhaler Triamcinolone 0.1% Cream [Kenalog 1 applicatio TOPICAL BID 7 Days #1 08/28/19 0.1% Cream] tube predniSONE 20 mg PO BID 4 Days #8 tab 08/28/19 Fluticasone Nasal [place] [Flonase 1 spray EA NOSTRIL DAILY #1 bottle 10/22/19 Nasal [place]] Allergies Allergy/AdvReac Type Severity Reaction Status Date / Time No Known Allergies Allergy Verified 08/27/19 21:53 Review of Systems ROS Statement: Those systems with pertinent positive or pertinent negative responses have been documented in the HPI. ROS Other: All systems not noted in ROS Statement are negative. EKG Findings - EKG Comments: EKG Findings:: ventricular rate 63, GA interval 150, QTC 392. Normal sinus rhythm with sinus arrhythmia. Incomplete right bundle branch block. No acute ST segment changes. EKG similar to previous on May 30 Past Medical History Past Medical History: No Reported History Additional Past Medical History / Comment(s): chest pain in the past History of Any Multi-Drug Resistant Organisms: None Reported Past Surgical History: Hernia Repair Additional Past Surgical History / Comment(s): oral surgery Past Psychological History: No Psychological Hx Reported Smoking Status: Former smoker Past Alcohol Use History: Occasional Past Drug Use History: Marijuana General Exam - General Exam Comments Initial Comments: GENERAL: Well-appearing, well-nourished and in no acute distress. HEAD: Atraumatic, normocephalic. EYES: Pupils equal round and reactive to light, extraocular movements intact, sclera anicteric, conjunctiva are normal. ENT: TMs normal, nares patent, oropharynx clear without exudates. Moist mucous membranes. NECK: Normal range of motion, supple without lymphadenopathy or JVD. LUNGS: Breath sounds clear to auscultation bilaterally and equal. No wheezes rales or rhonchi. HEART: Regular rate and rhythm without murmurs, rubs or gallops. ABDOMEN: Soft, nontender, normoactive bowel sounds. No guarding, no rebound. No masses appreciated. : Deferred EXTREMITIES: Normal range of motion, no pitting or edema. No clubbing or cyanosis. NEUROLOGICAL: Normal speech, normal gait. PSYCH: Normal mood, normal affect. SKIN: Warm, Dry, normal turgor, no rashes or lesions noted. Limitations: no limitations Course Vital Signs 10/22/19 10/22/19 16:30 17:30 Temperature 97.7 F Pulse Rate 80 84 Respiratory 18 18 Rate Blood Pressure 157/74 O2 Sat by Pulse 97 98 Oximetry Chest Pain MDM - [facility] patient is a 24-year-old male presenting with cough, congestion, chest pain. Vital signs are normal. EKG shows no acute changes. Chest x-ray is normal. I discussed with patient this is most likely related to his upper respiratory infection. I recommended a nasal decongestant for his symptoms. Patient will follow up with his PCP if symptoms persist. Patient is in agreement with this plan of care and he is stable for discharge at this time. Return parameters were discussed with the patient he verbalizes understanding. Case discussed with Dr. Jane. Disposition Clinical Impression: Atypical chest pain, URI (upper respiratory infection) Disposition: HOME SELF-CARE Condition: Stable Instructions (If sedation given, give patient instructions): Upper Respiratory Infection (ED) Additional Instructions: Please return to the Emergency Department if symptoms worsen or any other concerns. Use decongestant as discussed. May also use motrin for pain. Prescriptions: Fluticasone Nasal [place] [Flonase Nasal [place]] 1 spray EA NOSTRIL DAILY #1 bottle Is patient prescribed a controlled substance at d/c from ED?: No Referrals: Geronimo Aguirre MD [Primary Care Provider] - 1-2 days
--- NOTE | 2019-10-22 18:04 | XR ---
EXAMINATION TYPE: XR chest 2V DATE OF EXAM: 10/22/2019 COMPARISON: 05/30/2019 HISTORY: Chest pain TECHNIQUE: 2 views FINDINGS: Heart and mediastinum are normal. Lungs are clear. Diaphragm is normal. Bony thorax appears normal. IMPRESSION: Normal chest. No change.
[2019-10-22 18:43] VITALS: BP 110/57; PULSE 58
== END 2019-10-22 18:43 | disposition home or self-care (01) ==
LOC: EC 16:25
DX: J06.9 Acute upper respiratory infection, unspecified (principal); R07.89 Other chest pain; Z87.891 Personal history of nicotine dependence; Z53.8 Procedure and treatment not carried out for other reasons
CPT/HCPCS: 93005; 71046; 99285; 96372; J1885

== ENCOUNTER 2020-02-05 13:35 | Emergency (ER) | payer OTHER ==
[2020-02-05 13:40] VITALS: BP 121/79; PULSE 97; RESP 18; TEMP 98.2
--- NOTE | 2020-02-05 13:49 | ED ---
General Adult HPI - General Chief complaint: Neuro Symptoms/Deficit Stated complaint: lt arm tingling earlier today Time Seen by Provider: 02/05/20 13:40 Source: patient, RN notes reviewed Mode of arrival: ambulatory Limitations: no limitations - History of Present Illness Initial comments: 24-year-old male without any significant past medical history presents to the emergency department for anxiety. Patient states he has been very anxious because of everything going on with COVID19. States that last night he felt like he was having an anxiety attack and felt like his arms and legs were tingling. Patient states he took a shower and ate dinner and felt much better. He called his doctor about this this morning and was told that they're not see ing anyone in the office so to go to the emergency room. Patient states he is only here because his doctor would not see him, he does not feel as if he is having an emergency. He denies any symptoms at this time. He denies any tingling.Patient has no other complaints at this time including shortness of breath, chest pain, abdominal pain, nausea or vomiting, headache, or visual changes. - Related Data Previous Rx's Medication Instructions Recorded Amoxic-Pot Clav 875-125Mg 1 tab PO Q12HR #20 tablet 02/25/19 [Augmentin 875-125] Meclizine HCl 25 mg PO BID PRN #14 tablet 02/25/19 predniSONE 50 mg PO DAILY #5 tablet 02/25/19 Albuterol Inhaler [Ventolin Hfa 1 - 2 puff INHALATION RT-Q6H PRN 05/28/19 Inhaler] #1 inhaler Triamcinolone 0.1% Cream [Kenalog 1 applicatio TOPICAL BID 7 Days #1 08/28/19 0.1% Cream] tube predniSONE [Deltasone] 20 mg PO BID 4 Days #8 tab 08/28/19 Fluticasone Nasal [place] [Flonase 1 spray EA NOSTRIL DAILY #1 bottle 10/22/19 Nasal [place]] Allergies Allergy/AdvReac Type Severity Reaction Status Date / Time No Known Allergies Allergy Verified 02/05/20 13:40 Review of Systems ROS Statement: Those systems with pertinent positive or pertinent negative responses have been documented in the HPI. ROS Other: All systems not noted in ROS Statement are negative. Past Medical History Past Medical History: No Reported History Additional Past Medical History / Comment(s): chest pain in the past History of Any Multi-Drug Resistant Organisms: None Reported Past Surgical History: Hernia Repair Additional Past Surgical History / Comment(s): oral surgery Past Psychological History: No Psychological Hx Reported Smoking Status: Former smoker Past Alcohol Use History: Occasional Past Drug Use History: Marijuana General Exam Limitations: no limitations General appearance: alert, in no apparent distress Head exam: Present: atraumatic, normocephalic, normal inspection Eye exam: Present: normal appearance, PERRL, EOMI. Absent: scleral icterus, conjunctival injection, periorbital swelling ENT exam: Present: normal exam, mucous membranes moist Neck exam: Present: normal inspection. Absent: tenderness, meningismus, lymphadenopathy Respiratory exam: Present: normal lung sounds bilaterally. Absent: respiratory distress, wheezes, rales, rhonchi, stridor Cardiovascular Exam: Present: regular rate, normal rhythm GI/Abdominal exam: Present: soft, normal bowel sounds. Absent: distended, tenderness, guarding, rebound, rigid Extremities exam: Present: other (Radial pulses 2+ and equal bilaterally, sensation intact in upper and lower extremity bilaterally. Strength 5 out of 5 in upper and lower extremities.) Course Vital Signs 02/05/20 13:36 Temperature 98.2 F Pulse Rate 97 Respiratory 18 Rate Blood Pressure 121/79 O2 Sat by Pulse 99 Oximetry Medical Decision Making - Medical Decision Making Symptoms consistent with paresthesia secondary to anxiety which has been brought on because of the pandemic. Neurovascular status intact in upper and lower extremities. At this time patient does not have any symptoms whatsoever. He denies thoughts of harming himself or anyone else. Denies suicidal thoughts. I discussed ways to manage his anxiety as well as following up with his doctor for referral to psychology or counseling if needed. I recommend he return here for any worsening symptoms. Disposition Clinical Impression: Paresthesia Disposition: HOME SELF-CARE Condition: Good Instructions (If sedation given, give patient instructions): Generalized Anxiety Disorder (ED) Additional Instructions: When you start to feel anxious try to slow your breathing. Do activities that help with your anxiety such as taking a walk or taking a shower. Follow up with primary care in 1-2 days. Return to the emergency department for any worsening symptoms. Is patient prescribed a controlled substance at d/c from ED?: No Referrals: Suni Noe NPC [Primary Care Provider] - 1-2 days Time of Disposition: 13:48
== END 2020-02-05 13:51 | disposition home or self-care (01) ==
LOC: EC 13:35
DX: R20.2 Paresthesia of skin (principal); F41.9 Anxiety disorder, unspecified; Z87.891 Personal history of nicotine dependence
CPT/HCPCS: 71046; 93005; 99283; 99284

== ENCOUNTER 2020-02-05 21:06 | Emergency (ER) | payer OTHER ==
[2020-02-05 21:10] VITALS: RESP 18; TEMP 98
[2020-02-05] MEDS ORDERED: ALPRAZolam 0.5 MG TAB PO STA (21:18)
--- NOTE | 2020-02-05 21:39 | ED ---
Recheck HPI - General Chief Complaint: Recheck/Abnormal Lab/Rx Stated Complaint: Hand/Arm Numbness Time Seen by Provider: 02/05/20 21:12 Source: patient Mode of arrival: ambulatory Limitations: no limitations - History of Present Illness Initial Comments: 24 yo male presenting for all over numbness, Patient states since this "Covid-19 stuff going on", he has been very anxious. He states he has had history of anxiety but now it is out of control, denies depression or suicidal/homicidal ideations, denies hallucinations or bizarre behavior. Patient states he is worried he is getting bronchitis because he states he has had this feeling when he is sick. He just wants to be sure that he does not have coronavirus. Patient denies fevers, chest pain, nausea, vomiting, diarrhea, sore throat or cough. Patient states he does smoke. Patient denies any other complaints. Patient states that he was here earlier and the symptoms have no gotten better, he stat es he is very anxious and cant get it under control. Remaining ROS (-). Upon arrival patient appears well there is no signs of acute distress. - Related Data Previous Rx's Medication Instructions Recorded Amoxic-Pot Clav 875-125Mg 1 tab PO Q12HR #20 tablet 02/25/19 [Augmentin 875-125] Meclizine HCl 25 mg PO BID PRN #14 tablet 02/25/19 predniSONE 50 mg PO DAILY #5 tablet 02/25/19 Albuterol Inhaler [Ventolin Hfa 1 - 2 puff INHALATION RT-Q6H PRN 05/28/19 Inhaler] #1 inhaler Triamcinolone 0.1% Cream [Kenalog 1 applicatio TOPICAL BID 7 Days #1 08/28/19 0.1% Cream] tube predniSONE [Deltasone] 20 mg PO BID 4 Days #8 tab 08/28/19 Fluticasone Nasal [place] [Flonase 1 spray EA NOSTRIL DAILY #1 bottle 10/22/19 Nasal [place]] ALPRAZolam [Xanax] 0.5 mg PO DAILY PRN 3 Days #3 02/05/20 tablet Allergies Allergy/AdvReac Type Severity Reaction Status Date / Time No Known Allergies Allergy Verified 02/05/20 13:40 Review of Systems ROS Statement: Those systems with pertinent positive or pertinent negative responses have been documented in the HPI. ROS Other: All systems not noted in ROS Statement are negative. Past Medical History Past Medical History: No Reported History Additional Past Medical History / Comment(s): chest pain in the past History of Any Multi-Drug Resistant Organisms: None Reported Past Surgical History: Hernia Repair Additional Past Surgical History / Comment(s): oral surgery Past Psychological History: No Psychological Hx Reported Smoking Status: Former smoker Past Alcohol Use History: Occasional Past Drug Use History: Marijuana General Exam - General Exam Comments Initial Comments: General: The patient is awake and alert, in no distress, and does not appear acutely ill. Eye: +3 mm pupils are equal, round and reactive to light, extra-ocular movements are intact. No nystagmus. There is normal conjunctiva bilaterally. No signs of icterus. Ears, nose, mouth and throat: There are moist mucous membranes and no oral lesions. Neck: The neck is supple, there is no tenderness or JVD. Cardiovascular: There is a regular rate and rhythm. No murmur, rub or gallop is appreciated. Respiratory: Lungs are clear to auscultation, respirations are non-labored, breath sounds are equal. No wheezes, stridor, rales, or rhonchi. Musculoskeletal: Normal ROM, no tenderness. Strength 5/5. Sensation intact. Pulses equal bilaterally 2+. Neurological: A&O x 3. CN II-XII intact grossly, There are no obvious motor or sensory deficits. Coordination appears grossly intact. Speech is normal. Skin: Skin is warm and dry and no rashes or lesions are noted. Psychiatric: Cooperative, anxious Limitations: no limitations Course Vital Signs 02/05/20 02/05/20 21:07 22:01 Temperature 98.0 F 98.0 F Pulse Rate 66 60 Respiratory 18 18 Rate Blood Pressure 128/61 123/89 O2 Sat by Pulse 98 98 Oximetry Medical Decision Making - Medical Decision Making 24yo with history of anxiety, increased secondary to covid 19 news. Patient complaining of whole body numbess tingling. Happens when he is anxious. Patient given xanax states this greatly improved symptoms. EKG no changes from previous. He was concerned he has PNA. No cough, no fevers. CXR clear. Patient heart sounds WNL. Patient states he is ready for discharge upon reevaluation. Patient given 3 day RX for anxiety of xanax. Use and return paramters were discussed with patient. Case discussed with Dr. Jane who is agreeable to care plan and discharge. Disposition Clinical Impression: Numbness, Anxiety Disposition: HOME SELF-CARE Condition: Good Instructions (If sedation given, give patient instructions): Generalized Anxiety Disorder (ED) Additional Instructions: Please use medication as discussed. Please follow-up with family doctor in the next 2 days. Please return to emergency room if the symptoms increase or worsen or for any other concerns. Prescriptions: ALPRAZolam [Xanax] 0.5 mg PO DAILY PRN 3 Days #3 tablet PRN Reason: Anxiety Is patient prescribed a controlled substance at d/c from ED?: No Referrals: Geronimo Aguirre MD [Primary Care Provider] - 1-2 days Time of Disposition: 22:14
--- NOTE | 2020-02-05 21:49 | XR ---
EXAMINATION TYPE: XR chest 2V DATE OF EXAM: 02/05/2020 COMPARISON: 10/22/2019 HISTORY: Cough and congestion TECHNIQUE: 2 views FINDINGS: Heart and mediastinum are normal. Lungs are clear. Diaphragm is normal. Bony thorax appears normal. IMPRESSION: Normal chest. No change.
[2020-02-05 22:02] VITALS: BP 123/89; PULSE 60
== END 2020-02-05 22:18 | disposition home or self-care (01) ==
LOC: EC 21:06
DX: R20.0 Anesthesia of skin (principal); R20.2 Paresthesia of skin; F41.9 Anxiety disorder, unspecified; Z87.891 Personal history of nicotine dependence
CPT/HCPCS: 71046; 93005; 99284

== ENCOUNTER → 2020-08-29 | Outpatient (CLI) | payer OTHER ==
--- NOTE | 2020-08-29 10:06 | US ---
EXAMINATION TYPE: US abdomen complete DATE OF EXAM: 08/29/2020 COMPARISON: NONE CLINICAL HISTORY: 25-year-old male R10.84 Generalized abdominal pain. Patient complains of mid upper abdominal pain x 4 months, seems unrelated to eating. TECHNIQUE: Multiple sonographic images of the abdomen are obtained. FINDINGS: EXAM MEASUREMENTS: Liver Length: 18.0 cm Gallbladder Wall: 0.2 cm CBD: 0.2 cm Spleen: 8.9 cm Right Kidney: 12.1 x 5.7 x 4.6 cm Left Kidney: 11.7 x 5.1 x 5.0 cm Pancreas: Only a small portion of the pancreatic tail remains obscured by bowel gas. Remainder appea rs unremarkable. Liver: Borderline to mildly enlarged but with overall homogeneous appearance. No focal lesion. Gallbladder: wnl Evidence for sonographic Choudhury's sign: Yes, patient feels bloating/pressure pain on palpation. CBD: wnl Spleen: wnl Kidney stone or hydronephrosis. Upper IVC: wnl Abd Aorta: wnl IMPRESSION: 1. Borderline to mild hepatomegaly at 18.0 cm. 2. The chart snatcher indicates a positive sonographic Choudhury's sign. However, no gallstones or ancillar y imaging findings of acute cholecystitis. If further imaging evaluation of the gallbladder is desire d, consider HIDA scan. 3. No biliary ductal dilatation.
== END | disposition home or self-care (01) ==
LOC: RADUSWWP 08:17
PROVIDERS: ATTEND Internal Medicine
DX: R16.0 Hepatomegaly, not elsewhere classified (principal)
CPT/HCPCS: 76700

== ENCOUNTER 2020-08-31 12:15 | Emergency (ER) | payer OTHER ==
[2020-08-31 12:24] VITALS: RESP 18
[2020-08-31] MEDS ORDERED: ONDANSETRON 4 MG/2 ML VIAL IVP STA (12:35)
[2020-08-31] MEDS ORDERED: SODIUM CHLORIDE 0.9% 1,000 ML IV STA (12:35)
[2020-08-31] MEDS ORDERED: FAMOTIDINE 20 MG/2 ML VIAL IV STA (12:36)
[2020-08-31] MEDS ORDERED: MAG HYDROX/AL HYDROX/SIMETH 30 ML, HYOSCYAMINE ELIXIR 10 ML PO STA ×2 (12:36)
--- NOTE | 2020-08-31 12:41 | ED ---
Abdominal Pain HPI - General Chief Complaint: Abdominal Pain Stated Complaint: abd pain Time Seen by Provider: 08/31/20 12:27 Source: patient, RN notes reviewed Mode of arrival: ambulatory Limitations: no limitations - History of Present Illness Initial Comments: This is a 25-year-old male presents emergency Department chief complaint of abdominal pain. Patient verbalizes upper left-sided abdominal pain. He states it worsens after he eats certain foods and drinks alcohol. Patient states that he went on results states the pain worse. Patient did see new PCP in which he had an ultrasound and was negative for acute abnormality Patient was given o meprazole states that he only has taken occasionally does not take it regularly as directed. Denies any melena accusing. Patient states she did take some Pepto-Bismol which helped but stated that it causes constipation. No dysuria no hematuria no prior abdominal surgeries. Patient has no chest pain no back pain. - Related Data Previous Rx's Medication Instructions Recorded Amoxic-Pot Clav 875-125Mg 1 tab PO Q12HR #20 tablet 02/25/19 [Augmentin 875-125] Meclizine HCl 25 mg PO BID PRN #14 tablet 02/25/19 predniSONE 50 mg PO DAILY #5 tablet 02/25/19 Albuterol Inhaler (Mhu) [Ventolin 1 - 2 puff INHALATION RT-Q6H PRN 05/28/19 Hfa Inhaler (Mhu)] #1 inhaler Triamcinolone 0.1% Cream [Kenalog 1 applicatio TOPICAL BID 7 Days #1 08/28/19 0.1% Cream] tube predniSONE [Deltasone] 20 mg PO BID 4 Days #8 tab 08/28/19 Fluticasone Nasal [place] [Flonase 1 spray EA NOSTRIL DAILY #1 bottle 10/22/19 Nasal [place]] ALPRAZolam [Xanax] 0.5 mg PO DAILY PRN 3 Days #3 02/05/20 tablet Ondansetron Odt [Zofran Odt] 4 mg PO Q8HR PRN #10 tab 08/31/20 Pseudoephedrine 12Hr [Sudafed 12Hr] 120 mg PO Q12H #1 box 08/31/20 Sucralfate [Carafate] 1 gm PO BID #20 tablet 08/31/20 Allergies Allergy/AdvReac Type Severity Reaction Status Date / Time No Known Allergies Allergy Verified 08/31/20 12:24 Review of Systems ROS Statement: Those systems with pertinent positive or pertinent negative responses have been documented in the HPI. ROS Other: All systems not noted in ROS Statement are negative. Past Medical History Past Medical History: No Reported History Additional Past Medical History / Comment(s): chest pain in the past History of Any Multi-Drug Resistant Organisms: None Reported Past Surgical History: Hernia Repair Additional Past Surgical History / Comment(s): oral surgery Past Psychological History: No Psychological Hx Reported Smoking Status: Never smoker Past Alcohol Use History: Occasional Past Drug Use History: Marijuana General Exam Limitations: no limitations General appearance: alert, in no apparent distress Head exam: Present: atraumatic, normocephalic, normal inspection Eye exam: Present: normal appearance, PERRL, EOMI. Absent: scleral icterus, con junctival injection, periorbital swelling ENT exam: Present: normal exam, normal oropharynx, mucous membranes moist Neck exam: Present: normal inspection, full ROM. Absent: tenderness, meningismus, lymphadenopathy Respiratory exam: Present: normal lung sounds bilaterally. Absent: respiratory distress, wheezes, rales, rhonchi, stridor Cardiovascular Exam: Present: regular rate, normal rhythm, normal heart sounds. Absent: systolic murmur, diastolic murmur, rubs, gallop, clicks GI/Abdominal exam: Present: soft, tenderness (Mild to moderate epigastric, left upper quadrant), normal bowel sounds. Absent: distended, guarding, rebound, rigid Back exam: Absent: CVA tenderness (R), CVA tenderness (L) Neurological exam: Present: alert, oriented X3 Skin exam: Present: warm, dry, intact, normal color. Absent: rash Course Vital Signs 08/31/20 12:22 Temperature 99.5 F Pulse Rate 103 H Respiratory 18 Rate Blood Pressure 131/64 O2 Sat by Pulse 98 Oximetry Medical Decision Making - Medical Decision Making 25-year-old male presented for upper abdominal pain, epigastric pain. Patient is improved after GI cocktail. Symptoms are consistent with Rest versus early peptic ulcer disease. Patient will continue omeprazole and advised that he needs to do daily will be given Carafate and back to follow for ulcers. Patient will follow-up for EGD. - Lab Data Result diagrams: 08/31/20 12:49 08/31/20 12:49 Lab Results 08/31/20 08/31/20 08/31/20 Range/Units 12:49 12:49 13:30 WBC 4.7 (3.8-10.6) k/uL RBC 5.06 (4.30-5.90) m/uL Hgb 15.4 (13.0-17.5) gm/dL Hct 45.1 (39.0-53.0) % MCV 89.2 D (80.0-100.0) fL MCH 30.5 (25.0-35.0) pg MCHC 34.2 (31.0-37.0) g/dL RDW 12.2 (11.5-15.5) % Plt Count 163 (150-450) k/uL Neutrophils % 47 % Lymphocytes % 37 % Monocytes % 6 % Eosinophils % 7 % Basophils % 1 % Neutrophils # 2.2 (1.3-7.7) k/uL Lymphocytes # 1.7 (1.0-4.8) k/uL Monocytes # 0.3 (0-1.0) k/uL Eosinophils # 0.3 (0-0.7) k/uL Basophils # 0.1 (0-0.2) k/uL Sodium 139 (137-145) mmol/L Potassium 4.2 (3.5-5.1) mmol/L Chloride 105 (98-107) mmol/L Carbon Dioxide 26 (22-30) mmol/L Anion Gap 8 mmol/L BUN 12 (9-20) mg/dL Creatinine 0.83 (0.66-1.25) mg/dL Est GFR (CKD-EPI)AfAm >90 (>60 ml/min/1.73 sqM) Est GFR (CKD-EPI)NonAf >90 (>60 ml/min/1.73 sqM) Glucose 107 H (74-99) mg/dL Calcium 10.1 (8.4-10.2) mg/dL Total Bilirubin 1.0 (0.2-1.3) mg/dL AST 23 (17-59) U/L ALT 19 (4-49) U/L Alkaline Phosphatase 52 (38-126) U/L Total Protein 7.8 (6.3-8.2) g/dL Albumin 5.0 (3.5-5.0) g/dL Lipase 33 (23-300) U/L Urine Color Yellow Urine Appearance Clear (Clear) Urine pH 7.0 (5.0-8.0) Ur Specific [place] 1.024 (1.001-1.035) Urine Protein Trace H (Negative) Urine Glucose (UA) Negative (Negative) Urine Ketones Negative (Negative) Urine Blood Negative (Negative) Urine Nitrite Negative (Negative) Urine Bilirubin Negative (Negative) Urine Urobilinogen 2.0 (<2.0) mg/dL Ur Leukocyte Esterase Negative (Negative) Disposition Clinical Impression: Gastritis, Sinus congestion Disposition: HOME SELF-CARE Condition: Stable Instructions (If sedation given, give patient instructions): Gastritis (ED), Diet for Stomach Ulcers and Gastritis (ED) Additional Instructions: Please return to the Emergency Department if symptoms worsen or any other concerns. Take your omeprazole 40 mg daily as directed. Prescriptions: Sucralfate [Carafate] 1 gm PO BID #20 tablet Pseudoephedrine 12Hr [Sudafed 12Hr] 120 mg PO Q12H #1 box Ondansetron Odt [Zofran Odt] 4 mg PO Q8HR PRN #10 tab PRN Reason: Nausea Is patient prescribed a controlled substance at d/c from ED?: No Referrals: Lisa Garcia MD [Primary Care Provider] - 1-2 days Juan Luis Ramírez MD [STAFF PHYSICIAN] - 1-2 days Time of Disposition: 13:47
[2020-08-31 13:08] LABS: ALT 19 U/L (4-49); AST 23 U/L (17-59); African American GFR (CKD) >90 (>60 ml/min/1.73 sqM); Alkaline Phosphatase 52 U/L (38-126); Anion Gap 8 mmol/L; Blood Urea Nitrogen 12 mg/dL (9-20); Calcium 10.1 mg/dL (8.4-10.2); Carbon Dioxide 26 mmol/L (22-30); Chloride 105 mmol/L (98-107); Glucose 107 mg/dL (74-99); Non-African American GFR(CKD) >90 (>60 ml/min/1.73 sqM); Potassium 4.2 mmol/L (3.5-5.1); Sodium 139 mmol/L (137-145); Total Protein 7.8 g/dL (6.3-8.2)
[2020-08-31 13:15] LABS: Basophils # (A) 0.1 k/uL (0-0.2); Basophils % (A) 1 %; Eosinophils # (A) 0.3 k/uL (0-0.7); Eosinophils % (A) 7 %; HCT 45.1 % (39.0-53.0); HGB 15.4 gm/dL (13.0-17.5); Lymphocytes # (A) 1.7 k/uL (1.0-4.8); Lymphocytes % (A) 37 %; MCH 30.5 pg (25.0-35.0); MCHC 34.2 g/dL (31.0-37.0); Mean Platelet Volume 8.5; Monocytes # (A) 0.3 k/uL (0-1.0); Monocytes % (A) 6 %; Neutrophils # (A) 2.2 k/uL (1.3-7.7); Neutrophils % (A) 47 %; Platelet Count 163 k/uL (150-450); RBC 5.06 m/uL (4.30-5.90); RDW 12.2 % (11.5-15.5); WBC 4.7 k/uL (3.8-10.6)
[2020-08-31 13:23] LABS: MCV 89.2 fL (80.0-100.0)
[2020-08-31 13:38] LABS: Appearance,Urine Clear (Clear); Bilirubin,Urine Negative (Negative); Blood,Urine Negative (Negative); Color,Urine Yellow; Glucose,Urine (UA) Negative (Negative); Ketones,Urine Negative (Negative); Leukocyte Esterase,Urine Negative (Negative); Nitrite,Urine Negative (Negative); Protein,Urine Trace (Negative); Specific Gravity,Urine 1.024 (1.001-1.035)
[2020-08-31 14:04] VITALS: BP 129/68; PULSE 95; TEMP 98.2
== END 2020-08-31 14:03 | disposition home or self-care (01) ==
LOC: EC 12:15
DX: K29.70 Gastritis, unspecified, without bleeding (principal); R09.81 Nasal congestion
CPT/HCPCS: 36415; 80053; 83690; 85025; 81003; 99284; 96374; 96375; 96361; J2405

== ENCOUNTER → 2020-09-17 | Outpatient (CLI) | payer OTHER ==
--- NOTE | 2020-09-17 09:16 | NM ---
EXAMINATION TYPE: NM hepatobiliary w EF DATE OF EXAM: 09/17/2020 COMPARISON: NONE HISTORY: Pain TECHNIQUE: After the intravenous administration of 4.29 mCi Tc 99m Mebrofenin hepatobiliary scintigra phy is performed. Immediate images post injection. FINDINGS: There is satisfactory initial accumulation of tracer by the liver. The gallbladder is visualized wit hin 10 minutes. The small bowel activity is noted within 60 minutes. At one hour 8 ounces of oral e nsure plus is given to mimic CCK and gallbladder ejection fraction is calculated at 58 %, in the norm al range. Therefore there is no scintigraphic evidence of cystic or common bile duct obstruction to suggest acute cholecystitis or gallbladder dyskinesia. IMPRESSION: Exam is within normal limits.
--- NOTE | 2020-09-17 09:53 | XR ---
EXAMINATION TYPE: XR abdomen 1V DATE OF EXAM: 09/17/2020 COMPARISON: NONE HISTORY: Pain TECHNIQUE: Single supine KUB image of the abdomen is obtained FINDINGS: Small bowel demonstrates no evidence for dilatation or air fluid levels. Gas and fecal material is seen in non-distended colon. No convincing evidence for pneumoperitoneum. No unusual calcifications. The lung bases are clear. The osseous structures are intact. IMPRESSION: 1. Overall nonobstructive bowel gas pattern.
--- NOTE | 2020-09-17 09:58 | XR ---
EXAMINATION TYPE: XR sacrum coccyx DATE OF EXAM: 09/17/2020 CLINICAL HISTORY: pain TECHNIQUE: Three views of the sacrum and coccyx are submitted. COMPARISON: Sacral alae appear symmetric. No evidence for fracture or bony lesion. Sacroiliac joints are within normal limits. Visualized coccygeal segments are free of fracture or lesion. IMPRESSION: Normal study
--- NOTE | 2020-09-17 10:00 | XR ---
EXAMINATION TYPE: XR lumbar spine 2 or 3V DATE OF EXAM: 09/17/2020 CLINICAL HISTORY: pain TECHNIQUE: Three views of the lumbar spine are submitted. COMPARISON: None. FINDINGS: There are 5 lumbar type vertebral bodies identified. The lumbar spine shows satisfactory alignment w ithout evidence of acute fracture or dislocation. Vertebral body heights are within normal limits. Disc spaces are within normal limits. The overlying soft tissue appears unremarkable. IMPRESSION: No acute fracture or dislocation is seen in the lumbar spine. ICD 10 NO FRACTURE, INITIAL EVALUATION
== END | disposition home or self-care (01) ==
LOC: RADNMMAIN 07:00
PROVIDERS: ATTEND Internal Medicine
DX: R10.11 Right upper quadrant pain (principal)
CPT/HCPCS: 72100; 72220; 74018; 78226; A9537

== ENCOUNTER 2020-10-09 08:56 | Day surgery (SDC) | payer OTHER ==
[2020-10-06 11:30] VITALS: BMI 23.7
[~2020-10-09 08:56] MED LIST: LACTATED RINGERS 1,000 ML IV SCH
[2020-10-09 09:30] VITALS: TEMP 98.1
[2020-10-09] MEDS ORDERED: GLYCOPYRROLATE 0.2 MG/ML 2 ML VIAL ONE (10:10)
[2020-10-09] MEDS ORDERED: LIDOCAINE 1% INJ 10MG/ML (20 ML MDV) ONE (10:10)
[2020-10-09] MEDS ORDERED: PROPOFOL 10 MG/ML 20 ML VIAL IV ONE (10:10)
--- NOTE | 2020-10-09 10:32 | P.PCN ---
Date of Procedure: 10/09/20 Description of Procedure: BRIEF HISTORY: Patient is a 25-year-old male presenting for outpatient EGD for evaluation of epigastric abdominal pain. He complained of severe stomach pain radiating down to the mid abdomen. Chronic intermittent nonbloody diarrhea worsened with stress. Patient started on Bentyl and omeprazole therapy. PROCEDURE PERFORMED: Esophagogastroduodenoscopy with biopsy. PREOPERATIVE DIAGNOSIS: Epigastric abdominal pain. ESTIMATED BLOOD LOSS: Minimal. IV sedation per anesthesia. PROCEDURE: After informed consent was obtained, the patient was brought into the endoscopy unit. IV sedation was administered by Anesthesia under continuous monitoring. Initially the Olympus GIF-190 video endoscope was inserted into the mouth. Esophagus intubated without any difficulty. It was gradually advanced into the stomach and duodenum and carefully examined. The bulb and the second part of the duodenum appeared normal, with biopsies. The scope at this time was withdrawn to the stomach, adequately insufflated with air, and upon careful examination, mucosa of the antrum, body, cardia and the fundus appeared normal, except for some mild punctate erythema in the antrum and body suggestive of mild gastritis biopsies taken. The scope was then withdrawn into the esophagus. The GE junction was located at 45 cm from the incisors, and biopsies. The esophagus appeared normal. There were no erosions or ulcerations seen and the patient tolerated the procedure well. IMPRESSION: 1. Mild gastritis. 2. Biopsies of the GE junction, antrum and body and duodenum. RECOMMENDATIONS: The findings of this examination were discussed with the patient and his family. Okay to resume diet. Okay to resume medications. Await pathology from biopsies. Follow up in GI clinic as scheduled.
[2020-10-09 10:36] VITALS: RESP 16
[2020-10-09 10:48] VITALS: BP 112/53; PULSE 53
== END 2020-10-09 11:20 | disposition home or self-care (01) ==
LOC: ORWHC2ENDO 08:56
PROVIDERS: ATTEND Internal Medicine
DX: K29.50 Unspecified chronic gastritis without bleeding (principal); K20.0 Eosinophilic esophagitis; Z98.890 Other specified postprocedural states; F17.210 Nicotine dependence, cigarettes, uncomplicated; K52.9 Noninfective gastroenteritis and colitis, unspecified; Z79.899 Other long term (current) drug therapy
CPT/HCPCS: 88305; 43239; J2001; J2704

== ENCOUNTER → 2021-09-29 | Outpatient (CLI) | payer OTHER ==
--- NOTE | 2021-09-29 15:31 | XR ---
EXAMINATION TYPE: XR hand complete RT DATE OF EXAM: 09/29/2021 CLINICAL HISTORY: Pain and swelling is worse third digit. TECHNIQUE: Frontal and lateral images of the right hand are obtained. COMPARISON: Right hand x-ray April 15, 2011 FINDINGS: There is no acute fracture/dislocation evident in the right hand. Suspect old healed fract ure deformity distal fifth metacarpal. The joint spaces in the right hand appear within normal limits . The overlying soft tissue appears unremarkable. IMPRESSION: As above.
== END | disposition home or self-care (01) ==
LOC: RADXRMAIN 14:55
PROVIDERS: ATTEND Internal Medicine
DX: M79.644 Pain in right finger(s) (principal); R22.31 Localized swelling, mass and lump, right upper limb

== ENCOUNTER → 2021-10-07 | Outpatient (CLI) | payer OTHER ==
--- NOTE | 2021-10-07 13:40 | XR ---
EXAMINATION TYPE: XR hand complete RT DATE OF EXAM: 10/07/2021 CLINICAL HISTORY: pain TECHNIQUE: Frontal, lateral and oblique images of the right hand are obtained. COMPARISON: None. FINDINGS: There is no acute fracture/dislocation evident. The joint spaces appear within normal limi ts. The overlying soft tissue appears unremarkable. IMPRESSION: There is no acute fracture or dislocation ICD 10 NO FRACTURE, INITIAL EVALUATION
== END | disposition home or self-care (01) ==
LOC: RADXRMAIN 13:10
PROVIDERS: ATTEND Internal Medicine
DX: M79.641 Pain in right hand (principal)

== ENCOUNTER → 2022-01-28 | Outpatient (CLI) | payer OTHER ==
--- NOTE | 2022-01-29 06:30 | XR ---
EXAMINATION TYPE: XR lumbar spine 2 or 3V DATE OF EXAM: 01/28/2022 CLINICAL HISTORY: Pain from fall. TECHNIQUE: Frontal and lateral images of the lumbar spine are obtained. COMPARISON: Prior lumbar spine x-ray September 17, 2020 FINDINGS: There are 5 lumbar type vertebral bodies demonstrated. The lumbar spine shows persistent slight grade 1 retrolisthesis L4 on L5 and L5 and S1. Alignment is stable and straightened. Vertebral body heights and disk space heights remain within normal limits. No acute displaced fracture. The o verlying soft tissue appears unremarkable. IMPRESSION: As above.
--- NOTE | 2022-01-29 06:31 | XR ---
EXAMINATION TYPE: XR shoulder limited LT DATE OF EXAM: 01/28/2022 CLINICAL HISTORY: Pain after fall injury. TECHNIQUE: Two views of the left shoulder are obtained. COMPARISON: None. FINDINGS: There is no acute fracture/dislocation evident in the left shoulder. The acromioclavicula r and glenohumeral joint spaces appear within normal limits. Distal acromion morphology unremarkable. The visualized ribs are intact and unremarkable. IMPRESSION: There is no acute fracture or dislocation in the left shoulder.
--- NOTE | 2022-01-29 06:33 | XR ---
EXAMINATION TYPE: XR Hip Limited RT DATE OF EXAM: 01/28/2022 CLINICAL HISTORY: Pain after falling injury. TECHNIQUE: AP and frogleg views of the right hip are obtained. COMPARISON: None. FINDINGS: There is no acute fracture/dislocation evident in the right hip. The joint space in the r ight hip appears within normal limits. The overlying soft tissue appears unremarkable. IMPRESSION: There is no acute fracture or dislocation in the right hip.
== END | disposition home or self-care (01) ==
LOC: RADXRMAIN 14:28
PROVIDERS: ATTEND Internal Medicine
DX: S49.92XA Unspecified injury of left shoulder and upper arm, initial encounter (principal); S79.911A Unspecified injury of right hip, initial encounter; S39.92XA Unspecified injury of lower back, initial encounter; M43.16 Spondylolisthesis, lumbar region; M25.512 Pain in left shoulder; M25.551 Pain in right hip; W19.XXXA Unspecified fall, initial encounter
CPT/HCPCS: 72100; 73501

== ENCOUNTER 2025-04-13 21:00 | Emergency (ER) | payer OTHER ==
[2025-04-13 21:25] VITALS: BP 144/76; PULSE 89; RESP 18; TEMP 98.7
--- NOTE | 2025-04-13 21:54 | ED ---
General Adult HPI - General Chief complaint: Neck Pain/Injury Stated complaint: neck pain arm soreness abd pain Time Seen by Provider: 04/13/25 21:27 Source: patient, RN notes reviewed Mode of arrival: ambulatory Limitations: no limitations - History of Present Illness Initial comments: 29-year-old male presents to the emergency department for evaluation of neck discomfort. Patient states that this started this morning when he woke up. He does report that he was working on a vehicle yesterday. He states that this required him to be under the vehicle and lifting heavy objects. He states that he was doing this on his own. This is not a typical activity for him. The pain is worse with movement. He has not taken anything to help with his discomfort. Patient is also concerned because he had a scratch on his forehead while working on the vehicle. He is unsure when he last had a tetanus vaccine and would like to be updated today. He denies any recent fever, chills. Denies sore throat, cough, congestion, ear pain. - Related Data Home Medications Medication Instructions Recorded Confirmed Dicyclomine [Bentyl] 10 mg PO TID PRN 10/06/20 10/09/20 Fd Carter 1 cap PO DIRECTED 10/06/20 10/09/20 Omeprazole 40 mg PO BID 10/06/20 10/09/20 Previous Rx's Medication Instructions Recorded Cyclobenzaprine [Flexeril] 5 mg PO TID PRN #15 tablet 04/13/25 Allergies Allergy/AdvReac Type Severity Reaction Status Date / Time No Known Allergies Allergy Verified 04/13/25 21:25 Review of Systems ROS Statement: Those systems with pertinent positive or pertinent negative responses have been documented in the HPI. ROS Other: All systems not noted in ROS Statement are negative. Past Medical History Past Medical History: Chest Pain / Angina, GERD/Reflux Additional Past Medical History / Comment(s): EPISODES OF CHEST PAIN WITH ER VISITS, SLEEP STUDY SCHEDULED, DEVIATED SEPTUM-STATES HE WAKES UP SOMETIMES WITH SOB., ?IBS-STATES DIARRHEA & CONSTIPATION. History of Any Multi-Drug Resistant Organisms: None Reported Past Surgical History: Hernia Repair Additional Past Surgical History / Comment(s): HERNIA (CHILD) Past Anesthesia/Blood Transfusion Reactions: Unable to Obtain Past Psychological History: Anxiety, Depression Smoking Status: Former smoker Past Alcohol Use History: None Reported Past Drug Use History: Marijuana - Past Family History Mother Family Medical History: Diabetes Mellitus General Exam Limitations: no limitations General appearance: alert, in no apparent distress Head exam: Present: atraumatic, normocephalic, normal inspection Eye exam: Present: normal appearance, PERRL, EOMI. Absent: scleral icterus, conjunctival injection, periorbital swelling ENT exam: Present: normal exam, mucous membranes moist, TM's normal bilaterally, normal external ear exam Neck exam: Present: tenderness (Tenderness palpation over the trapezius muscle, sternocleidomastoid), full ROM. Absent: meningismus Respiratory exam: Present: normal lung sounds bilaterally. Absent: respiratory distress, wheezes, rales, rhonchi, stridor Cardiovascular Exam: Present: regular rate, normal rhythm, normal heart sounds. Absent: systolic murmur, diastolic murmur, rubs, gallop, clicks Extremities exam: Present: normal inspection, full ROM, normal capillary refill. Absent: tenderness, pedal edema, joint swelling, calf tenderness Neurological exam: Present: alert, oriented X3 Psychiatric exam: Present: normal affect, normal mood Skin exam: Present: warm, dry, abrasion (Superficial abrasion to the left upper forehead about 2 cm). Absent: intact Course Vital Signs 04/13/25 21:22 Temperature 98.7 F Pulse Rate 89 Respiratory 18 Rate Blood Pressure 144/76 O2 Sat by Pulse 98 Oximetry Medical Decision Making - Medical Decision Making Was pt. sent in by a medical professional or institution (Dr. PA, FINANCIAL SERVICES REP, urgent care, hospital, or fdc...) When possible be specific @ -No Did you speak to anyone other than the patient for history (EMS, parent, family, police, friend...)? What history was obtained from this source @ -No Did you review nursing and triage notes (agree or disagree)? Why? @ -I reviewed and agree with nursing and triage notes Were old charts reviewed (outside hosp., previous admission, EMS record, old EKG, old radiological studies, urgent care reports/EKG's, fdc records)? Report findings @ -No old charts were reviewed Differential Diagnosis (chest pain, altered mental status, abdominal pain women, abdominal pain men, vaginal bleeding, weakness, fever, dyspnea, syncope, headache, dizziness, GI bleed, back pain, seizure, CVA, palpatations, mental health, musculoskeletal)? @ -Differential Back Pain: Strain, zoster, cauda equina syndrome, epidural abscess, vertebral osteomyelitis, discitis, fracture, subluxation, disc herniation, DJD, spinal stenosis, dissection, AAA, pancreatitis, peptic ulcer disease, pyelonephritis, kidney stone, this is not meant to be an all-inclusive list. EKG interpreted by me (3pts min.). @ -None X-rays interpreted by me (1pt min.). @ -None done CT interpreted by me (1pt min.). @ -None done U/S interpreted by me (1pt. min.). @ -None done What testing was considered but not performed or refused? (CT, X-rays, U/S, labs)? Why? @ -None What meds were considered but not given or refused? Why? @ -None Did you discuss the management of the patient with other professionals (professionals i.e. , PA, FINANCIAL SERVICES REP, lab, RT, psych nurse, social insurance analyst, sales recruiting coordinator, teacher, weapons electrical engineering officer, immigration case worker)? Give summary @ -No Was smoking cessation discussed for >3mins.? @ -No Was critical care preformed (if so, how long)? @ -No Were there social determinants of health that impacted care today? How? (Homelessness, low income, unemployed, alcoholism, drug addiction, transportation, low edu. Level, literacy, decrease access to med. care, [facility], rehab)? @ -No Was there de-escalation of care discussed even if they declined (Discuss DNR or withdrawal of care, Hospice)? DNR status @ -No What co-morbidities impacted this encounter? (DM, HTN, Smoking, COPD, CAD, Cancer, CVA, ARF, Chemo, Hep., AIDS, mental health diagnosis, sleep apnea, morbid obesity)? @ -None Was patient admitted / discharged? Hospital course, mention meds given and route, prescriptions, significant lab abnormalities, going to OR and other pertinent info. @ -Discharge. Patient presented emergency department for neck discomfort. On examination, this appears to be musculoskeletal. Patient was provided medication for pain control in the emergency department. He was updated on a tetanus vaccine due to the scratch on his forehead that he endured yesterday. The patient will be discharged home. He is understanding agreeable with plan. Patient stable at time of discharge. Case discussed with Dr. Kim Undiagnosed new problem with uncertain prognosis? @ -No Drug Therapy requiring intensive monitoring for toxicity (Heparin, Nitro, Insulin, Cardizem)? @ -No Were any procedures done? @ -No Diagnosis/symptom? @ -Neck strain Acute, or Chronic, or Acute on Chronic? @ -Acute Uncomplicated (without systemic symptoms) or Complicated (systemic symptoms)? @ -Uncomplicated Side effects of treatment? @ -No Exacerbation, Progression, or Severe Exacerbation? @ -No Poses a threat to life or bodily function? How? (Chest pain, [place], [place], pneumonia, PE, COPD, DKA, ARF, appy, cholecystitis, CVA, Diverticulitis, Homicidal, Suicidal, threat to staff... and all critical care pts) @ -No Disposition Clinical Impression: Strain of neck muscle Disposition: HOME SELF-CARE Condition: Stable Instructions (If sedation given, give patient instructions): Cervical Strain (ED) Additional Instructions: Please follow-up with your doctor. Return to the emergency department for new or worsening symptoms. Prescriptions: Cyclobenzaprine [Flexeril] 5 mg PO TID PRN #15 tablet PRN Reason: Muscle Spasm Is patient prescribed a controlled substance at d/c from ED?: No Referrals: Manuel Madrigal MD [Primary Care Provider] - 1-2 days
[2025-04-13] MEDS: IBUPROFEN 800 MG TAB PO STA (22:00)
[2025-04-13] MEDS: DIPH,PERTUS(ACELL)TETVAC-LF 0.5 ML VIAL IM ONE (22:01)
== END 2025-04-13 22:06 | disposition home or self-care (01) ==
LOC: EC 21:00
DX: S16.1XXA Strain of muscle, fascia and tendon at neck level, initial encounter (principal); Z87.891 Personal history of nicotine dependence; Z23 Encounter for immunization; X50.1XXA Overexertion from prolonged static or awkward postures, initial encounter
CPT/HCPCS: 90471; 90715; 99283